=== PATIENT | female | born 1965 | race Caucasian/White ===

== ENCOUNTER 2024-02-07 16:12 | Emergency (ER) | payer MEDICARE ==
--- OUTSIDE RECORDS SUMMARY | 2024-02-07 16:18 | XMS REPORT | Continuity of Care Document ---
Author Name Unknown Address [address] [facility] [address] [place] [address] [facility] Address [address] [facility] [place] [address] Care Team Providers Care Chute Worker Name Role Phone GRABIEL CROCKETT Primary Care Physician Unavaila Grabiel Bhagat Attending Clinician Unavailable ZAIRE ACOSTA Attending Clinician UnavailZAIRE Girard Attending Clinician UnavailZaire Girard MD Attending Clinician [phone] PHILL DASILVA Attending Clinician Unavail able PHILL DASILVA Attending Clinician Unavail able Phill Dasilva MD Attending Clinician Anusha Irene Attending Clinician RADIOLOGY Attending Clinician Unavailable OLIVIER ZAVALETA Attending Clinician Unavailable OLIVIER ZAVALETA Attending Clinician Unavailable Doctor Unassigned, [place] Attending Clinician U navailable Radiology Attending Clinician Unavailable Pob, [facility] Attending Clinician UnavailJose Michaels MD Attending Clinician HI Attending Clinician Unavailable MAKENZIE DUBOIS Attending Clinician Unavailab Kacie PRASAD, Makenzie Lynch Attending Clinician [phone] Merrill Horton Attending Clinician [phone] BLU GRISSOM Attending Clinician UnavailBlu Puentes MD Attending Clinician [phone] Only, Ang Db Test Attending Clinician Unavailelisha Black MD, Rebecca Attending Clinician [phone] REBECCA BLACK Attending Clinician Unavailable Modesto ROSAS, Zaira Regalado Attending Clinician Unavailab patel Pcp, Patient Does Not Have A Attending Clinician NAIN PRICE Attending Clinician Unavailable Nain Fu Attending Clinician [phone] Kristopher KAYE, Martir Attending Clinician PHILL DASILVA Admitting Clinician Unavail able OLIVIER ZAVALETA Admitting Clinician Unavailable HI Admitting Clinician Unavailable SUNDAY GARY Admitting Clinician UnavailBLU [place] Admitting Clinician Unavailab patel Payers Payer Name Policy Type Policy Number Effective Date Expirati on Date Source [facility] MEDICARE ADVANTAGE PLAN [id number] 2023 00:00:00 [employer] (MEDICARE REPLACEMENT/ADVANTAG E - HMO) [id number] 2019 00:00:00 Problems Condition Name Condition Details Condition Category Status Onset Date Resolution Date Last Treatment Date Treating Clinician Comments Source Body mass index 40+ - severely obese Body Mass Index 40+ - Severely Obese Problem Active 2-23 00:00: 00 [facility] Long-term drug therapy Long-term Drug Therapy Problem Active 06-23 00:00: 00 [facility] 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 History of Cerebrovas cular Accident Due to Ischemia Problem Active 2019-05 1 00:00: 00 [facility] Peripheral edema Peripheral Edema Problem Active 820 00:00: 00 [facility] Lumbar radiculopa thy Lumbar Radiculopa thy Problem Active 14 00:00: 00 [facility] Dysuria Dysuria Problem Active 10-05 00:00: 00 [facility] Acquired pes planus Acquired Pes Planus Problem Active 10-05 00:00: 00 [place] [facility] Hyperchole sterolemia Hyperchole sterolemia Problem Active 06-05 00:00: 00 [facility] Chronic pain syndrome Chronic Pain Syndrome Problem Active 06-05 00:00: 00 [place] [facility] Hypertensi ve disorder Hypertensi ve Disorder Problem Active 06-05 00:00: 00 [facility] Osteoarthr itis Osteoarthr itis Problem Active 06-05 00:00: 00 [facility] Low back pain Low Back Pain Problem Active 06-05 00:00: 00 [facility] Neuralgia Neuralgia Problem Active 06-05 00:00: 00 [place] [facility] Anticoagul ant therapy Anticoagul ant Therapy Problem Active 06-05 00:00: 00 [place] [facility] History of hemorrhagi c stroke with residual hemiplegia History of Hemorrhagi c Stroke with Residual Hemiplegia Problem Active 06-05 00:00: 00 [place] [facility] CVA (cerebral vascular accident) CVA (cerebral vascular accident) Disease Active 12-27 00:00: 00 [facility] Hemiplegia affecting left nondominan t side Hemiplegia affecting left nondominan t side Disease Active 12-27 00:00: 00 [facility] Seizures Seizures Disease Active 12-27 00:00: 00 [facility] Transient alteration of awareness Transient alteration of awareness Disease Active 12-25 00:00: 00 [facility] Transient alteration of awareness Transient alteration of awareness Disease Active 12-25 00:00: 00 [facility] Morbid obesity with body mass index of 40.0-49.9 Morbid obesity with body mass index of 40.0-49.9 Disease Active 12-24 00:00: 00 [facility] Morbid obesity with body mass index of 50 or higher Morbid obesity with body mass index of 50 or higher Disease Active 12-24 00:00: 00 [facility] Elective surgery Elective surgery Disease Active 12-24 00:00: 00 [facility] PFO (patent foramen ovale) PFO (patent foramen ovale) Disease Active 10-31 00:00: 00 Overview: Formattin g of this note might be different from the original. Added automatic ally from request for surgery [id number] [facility] Dental caries Dental caries Disease Active 10-31 00:00: 00 Overview: Formattin g of this note might be different from the original. Added automatic ally from request for surgery [id number] [facility] Allergies, Adverse Reactions, Alerts Allergy Name Allergy Type Status Severity Reaction(s) Onset Date Inactive Date Treating Clinician Comments Source NAPROXEN DRUG INGREDI Active Rash 10-19 00:00: 00 [facility] TETRACYC LINE DRUG INGREDI Active Anaphylaxis 10-19 00:00: 00 [facility] Naproxen Propensi ty to adverse reaction s Active Rash 10-19 00:00: 00 [facility] Tetracyc line Propensi ty to adverse reaction s Active Anaphylaxis 10-19 00:00: 00 [facility] Tetracyc line Drug Allergy Active [facility] Naproxen Allergy to substanc e Active [facility] Tetracyc line Allergy to substanc e Active [facility] Social History Social Habit Start Date Stop Date Quantity Comments Source ASSERTION [facility] of Social function 2023-09-28 00:00:00 2023-09-28 00:00:00 [facility] Exposure to SARS-CoV-2 (event) 2022-10-08 00:00:00 2022-10-18 14:18:00 Not sure [facility] Tobacco use and exposure 2017-04-23 00:00:00 2017-04-23 00:00:00 Smokeless tobacco non-user [facility] Sex assigned at 1965 00:00:00 1965 00:00:00 [facility] Smoking Status Start Date Stop Date Source Never smoked tobacco [facility] Medications Ordered Medication Name Filled Medication Name Start Date Stop Date Current Medication? Ordering Clinician Indication Dosage Frequency Signature (SIG) Comments Components Source traMADoL (ULTRAM) tablet 50 mg 01-30 01:30: 00 01-30 00:41 :00 No 50mg 50 mg, Oral, ONCE, 1 dose, On Adela 01/30/24 at 2030, [facility] ondansetron (ZOFRAN-ODT ) disintegrat ing tablet 4 mg 01-30 01:15: 00 01-30 00:41 :00 No 4mg 4 mg, Oral, ONCE, 1 dose, On Adela 01/30/24 at 2015, [facility] acetaminoph en (TYLENOL) tablet 650 mg 01-29 23:15: 00 01-30 00:41 :00 No 650mg 650 mg, Oral, ONCE, 1 dose, On Adela 01/30/24 at 1815, [facility] traMADoL 50 mg tablet 01-29 00:00: 00 Yes [id number] 50mg Take 1 tablet by mouth every 6 (six) hours as needed for Pain (scale 4-6). Indication s: acute pain [facility] ondansetron 4 mg disintegrat ing tablet 01-29 00:00: 00 Yes [id number] 4mg Take 1 tablet by mouth every 4 (four) hours as needed for Nausea and Vomiting (N/V). [facility] meloxicam (MOBIC) tablet 15 mg 09-28 14:00: 00 Yes 15mg 15 mg, Oral, DAILY, First dose on Sat09/29/23 at 0900, Until Discontinu ed, [facility] acetaminoph en (TYLENOL) tablet 975 mg 09-28 02:15: 00 09-28 01:31 :00 No 975mg 975 mg, Oral, ONCE NOW, 1 dose, On 09/28/23 at 2115, [facility] meloxicam 15 mg tablet 09-27 00:00: 00 Yes [id number] 15mg Take 1 tablet by mouth in the morning. [facility] acetaminoph en (TYLENOL ARTHRITIS PAIN) 650 mg CR tablet 09-27 00:00: 00 Yes [id number] 650mg Take 1 tablet by mouth every 8 (eight) hours as needed for Pain. [facility] predniSONE 20 mg tablet 09-27 00:00: 00 Yes [id number] Take 2 tablets PO daily [facility] warfarin 2.5 mg tablet 02-11 00:00: 00 Yes 1.25mg Take 0.5 tablets by mouth every Sat, Sat, Sat and Sat in the evening. [facility] warfarin 2.5 mg tablet 02-10 00:00: 00 Yes 2.5mg Take 1 tablet by mouth every Saturday, and Saturday in the evening. [facility] calcium carbonate-v itamin D3 250-125 mg-unit per tablet 02-06 00:00: 00 Yes 250mg Take 1 tablet by mouth 3 (three) times daily. [facility] chlorhexidi ne 0.12 % mouthwash 02-06 00:00: 00 Yes 15mL Swish and spit out 15 mL 2 (two) times daily. [facility] phenylephri ne 0.25 % suppository 02-06 00:00: 00 Yes 1{suppo sitory} Insert 1 Suppositor y into rectum 2 (two) times daily. [facility] docusate 100 mg capsule 02-06 00:00: 00 Yes 100mg Take 1 capsule by mouth daily. [facility] aspirin 81 mg chewable tablet 02-06 00:00: 00 Yes 81mg Take 1 tablet by mouth daily. [facility] clopidogrel 75 mg tablet 02-06 00:00: 00 Yes 75mg Take 1 tablet by mouth daily.X 6 MOS.HG [facility] omeprazole 20 mg capsule 02-06 00:00: 00 Yes 20mg Take 1 capsule by mouth daily. [facility] nortriptyli ne 50 mg capsule 02-06 00:00: 00 Yes 50mg Take 1 capsule by mouth at bedtime. [facility] chlorhexidi ne 0.12 % mouthwash 02-06 00:00: 00 Yes 15mL Swish and spit out 15 mL 2 (two) times daily. [facility] atorvastati n calcium 40 mg tablet atorvastati n calcium 40 mg tablet Yes [facility] amlodipine besylate 5 mg tablet amlodipine besylate 5 mg tablet Yes [facility] carvedilol 3.125 mg tablet carvedilol 3.125 mg tablet Yes [facility] gabapentin 300 mg capsule gabapentin 300 mg capsule Yes [facility] cyclobenzap rine hcl 10 mg tablet cyclobenzap rine hcl 10 mg tablet Yes [facility] hydrochloro thiazide 12.5 mg tablet hydrochloro thiazide 12.5 mg tablet Yes [facility] amlodipine 5 mg tablet TAKE 1 TABLET BY MOUTH EVERY DAY amlodipine 5 mg tablet TAKE 1 TABLET BY MOUTH EVERY DAY No amlodipine 5 mg tablet TAKE 1 TABLET BY MOUTH EVERY DAY [facility] aspirin 81 mg chewable tablet Chew 1 tablet every day by oral route. aspirin 81 mg chewable tablet Chew 1 tablet every day by oral route. No 1 Q1D aspirin 81 mg chewable tablet Chew 1 tablet every day by oral route. [facility] atorvastati n 40 mg tablet TAKE 1 TABLET BY MOUTH EVERY DAY atorvastati n 40 mg tablet TAKE 1 TABLET BY MOUTH EVERY DAY No atorvastat in 40 mg tablet TAKE 1 TABLET BY MOUTH EVERY DAY [facility] carvedilol 3.125 mg tablet TAKE 1 TABLET BY MOUTH TWICE DAILY carvedilol 3.125 mg tablet TAKE 1 TABLET BY MOUTH TWICE DAILY No carvedilol 3.125 mg tablet TAKE 1 TABLET BY MOUTH TWICE DAILY [facility] cyclobenzap rine 5 mg tablet TAKE 1 TABLET BY MOUTH THREE TIMES DAILY cyclobenzap rine 5 mg tablet TAKE 1 TABLET BY MOUTH THREE TIMES DAILY No cyclobenza sadi 5 mg tablet TAKE 1 TABLET BY MOUTH THREE TIMES DAILY [facility] ergocalcife rol (vitamin D2) 1,250 mcg (50,000 unit) capsule 1 PO weekly ergocalcife rol (vitamin D2) 1,250 mcg (50,000 unit) capsule 1 PO weekly No ergocalcif harshal (vitamin D2) 1,250 mcg (50,000 unit) capsule 1 PO weekly [facility] Fluzone Quad (PF) 60 mcg (15 mcg x 4)/0.5 mL IM syringe Fluzone Quad (PF) 60 mcg (15 mcg x 4)/0.5 mL IM syringe No Fluzone Quad (PF) 60 mcg (15 mcg x 4)/0.5 mL IM syringe [facility] gabapentin 100 mg capsule TK 2 CAPSULES PO BID gabapentin 100 mg capsule TK 2 CAPSULES PO BID No gabapentin 100 mg capsule TK 2 CAPSULES PO BID [facility] hydrochloro thiazide 12.5 mg tablet TAKE 1 TABLET BY MOUTH EVERY DAY hydrochloro thiazide 12.5 mg tablet TAKE 1 TABLET BY MOUTH EVERY DAY No hydrochlor othiazide 12.5 mg tablet TAKE 1 TABLET BY MOUTH EVERY DAY [facility] Prilosec OTC 20 mg twice daily Prilosec OTC 20 mg twice daily No Prilosec OTC 20 mg twice daily [facility] Shingrix (PF) 50 mcg/0.5 mL intramuscul ar suspension, kit Shingrix (PF) 50 mcg/0.5 mL intramuscul ar suspension, kit No Shingrix (PF) 50 mcg/0.5 mL intramuscu lar suspension , kit [facility] tizanidine 4 mg tablet TAKE 1 TABLET BY MOUTH TWICE DAILY tizanidine 4 mg tablet TAKE 1 TABLET BY MOUTH TWICE DAILY No tizanidine 4 mg tablet TAKE 1 TABLET BY MOUTH TWICE DAILY [facility] warfarin 3 mg tablet TAKE 1 TABLET BY MOUTH DAILY warfarin 3 mg tablet TAKE 1 TABLET BY MOUTH DAILY No warfarin 3 mg tablet TAKE 1 TABLET BY MOUTH DAILY [facility] warfarin 4 mg tablet TAKE 1 TABLET BY MOUTH EVERY DAY warfarin 4 mg tablet TAKE 1 TABLET BY MOUTH EVERY DAY No warfarin 4 mg tablet TAKE 1 TABLET BY MOUTH EVERY DAY [facility] sulfamethox azole 800 mg-trimetho prim 160 mg tablet Take 1 tablet every 12 hours by oral route for 7 days. sulfamethox azole 800 mg-trimetho prim 160 mg tablet Take 1 tablet every 12 hours by oral route for 7 days. No 1 Q12H sulfametho xazole 800 mg-trimeth oprim 160 mg tablet Take 1 tablet every 12 hours by oral route for 7 days. [facility] amlodipine 5 mg tablet TAKE 1 TABLET BY MOUTH EVERY DAY amlodipine 5 mg tablet TAKE 1 TABLET BY MOUTH EVERY DAY No amlodipine 5 mg tablet TAKE 1 TABLET BY MOUTH EVERY DAY [facility] aspirin 81 mg chewable tablet Chew 1 tablet every day by oral route. aspirin 81 mg chewable tablet Chew 1 tablet every day by oral route. No 1 Q1D aspirin 81 mg chewable tablet Chew 1 tablet every day by oral route. [facility] atorvastati n 40 mg tablet TAKE 1 TABLET BY MOUTH EVERY DAY atorvastati n 40 mg tablet TAKE 1 TABLET BY MOUTH EVERY DAY No atorvastat in 40 mg tablet TAKE 1 TABLET BY MOUTH EVERY DAY [facility] carvedilol 3.125 mg tablet TAKE 1 TABLET BY MOUTH TWICE DAILY carvedilol 3.125 mg tablet TAKE 1 TABLET BY MOUTH TWICE DAILY No carvedilol 3.125 mg tablet TAKE 1 TABLET BY MOUTH TWICE DAILY [facility] cyclobenzap rine 5 mg tablet TAKE 1 TABLET BY MOUTH THREE TIMES DAILY cyclobenzap rine 5 mg tablet TAKE 1 TABLET BY MOUTH THREE TIMES DAILY No cyclobenza sadi 5 mg tablet TAKE 1 TABLET BY MOUTH THREE TIMES DAILY [facility] ergocalcife rol (vitamin D2) 1,250 mcg (50,000 unit) capsule 1 PO weekly ergocalcife rol (vitamin D2) 1,250 mcg (50,000 unit) capsule 1 PO weekly No ergocalcif harshal (vitamin D2) 1,250 mcg (50,000 unit) capsule 1 PO weekly [facility] fluconazole 150 mg tablet TAKE 1 TABLET BY MOUTH 1 WEEK AFTER COMPLETION OF ANTIBIOTIC TREATMENT fluconazole 150 mg tablet TAKE 1 TABLET BY MOUTH 1 WEEK AFTER COMPLETION OF ANTIBIOTIC TREATMENT No fluconazol e 150 mg tablet TAKE 1 TABLET BY MOUTH 1 WEEK AFTER COMPLETION OF ANTIBIOTIC TREATMENT [facility] Fluzone Quad (PF) 60 mcg (15 mcg x 4)/0.5 mL IM syringe Fluzone Quad (PF) 60 mcg (15 mcg x 4)/0.5 mL IM syringe No Fluzone Quad (PF) 60 mcg (15 mcg x 4)/0.5 mL IM syringe [facility] gabapentin 100 mg capsule TK 2 CAPSULES PO BID gabapentin 100 mg capsule TK 2 CAPSULES PO BID No gabapentin 100 mg capsule TK 2 CAPSULES PO BID [facility] hydrochloro thiazide 12.5 mg tablet TAKE 1 TABLET BY MOUTH EVERY DAY hydrochloro thiazide 12.5 mg tablet TAKE 1 TABLET BY MOUTH EVERY DAY No hydrochlor othiazide 12.5 mg tablet TAKE 1 TABLET BY MOUTH EVERY DAY [facility] Prilosec OTC 20 mg twice daily Prilosec OTC 20 mg twice daily No Prilosec OTC 20 mg twice daily [facility] Shingrix (PF) 50 mcg/0.5 mL intramuscul ar suspension, kit Shingrix (PF) 50 mcg/0.5 mL intramuscul ar suspension, kit No Shingrix (PF) 50 mcg/0.5 mL intramuscu lar suspension , kit [facility] sulfamethox azole 800 mg-trimetho prim 160 mg tablet TAKE 1 TABLET BY MOUTH EVERY 12 HOURS FOR 7 DAYS sulfamethox azole 800 mg-trimetho prim 160 mg tablet TAKE 1 TABLET BY MOUTH EVERY 12 HOURS FOR 7 DAYS No sulfametho xazole 800 mg-trimeth oprim 160 mg tablet TAKE 1 TABLET BY MOUTH EVERY 12 HOURS FOR 7 DAYS [facility] tizanidine 4 mg tablet TAKE 1 TABLET BY MOUTH TWICE DAILY tizanidine 4 mg tablet TAKE 1 TABLET BY MOUTH TWICE DAILY No tizanidine 4 mg tablet TAKE 1 TABLET BY MOUTH TWICE DAILY [facility] warfarin 3 mg tablet TAKE 1 TABLET BY MOUTH DAILY warfarin 3 mg tablet TAKE 1 TABLET BY MOUTH DAILY No warfarin 3 mg tablet TAKE 1 TABLET BY MOUTH DAILY [facility] warfarin 4 mg tablet TAKE 1 TABLET BY MOUTH EVERY DAY warfarin 4 mg tablet TAKE 1 TABLET BY MOUTH EVERY DAY No warfarin 4 mg tablet TAKE 1 TABLET BY MOUTH EVERY DAY [facility] amlodipine 5 mg tablet TAKE 1 TABLET BY MOUTH EVERY DAY amlodipine 5 mg tablet TAKE 1 TABLET BY MOUTH EVERY DAY No amlodipine 5 mg tablet TAKE 1 TABLET BY MOUTH EVERY DAY [facility] aspirin 81 mg chewable tablet Chew 1 tablet every day by oral route. aspirin 81 mg chewable tablet Chew 1 tablet every day by oral route. No 1 Q1D aspirin 81 mg chewable tablet Chew 1 tablet every day by oral route. [facility] atorvastati n 40 mg tablet TAKE 1 TABLET BY MOUTH EVERY DAY atorvastati n 40 mg tablet TAKE 1 TABLET BY MOUTH EVERY DAY No atorvastat in 40 mg tablet TAKE 1 TABLET BY MOUTH EVERY DAY [facility] carvedilol 3.125 mg tablet TAKE 1 TABLET BY MOUTH TWICE DAILY carvedilol 3.125 mg tablet TAKE 1 TABLET BY MOUTH TWICE DAILY No carvedilol 3.125 mg tablet TAKE 1 TABLET BY MOUTH TWICE DAILY [facility] cyclobenzap rine 5 mg tablet TAKE 1 TABLET BY MOUTH THREE TIMES DAILY cyclobenzap rine 5 mg tablet TAKE 1 TABLET BY MOUTH THREE TIMES DAILY No cyclobenza sadi 5 mg tablet TAKE 1 TABLET BY MOUTH THREE TIMES DAILY [facility] ergocalcife rol (vitamin D2) 1,250 mcg (50,000 unit) capsule 1 PO weekly ergocalcife rol (vitamin D2) 1,250 mcg (50,000 unit) capsule 1 PO weekly No ergocalcif harshal (vitamin D2) 1,250 mcg (50,000 unit) capsule 1 PO weekly [facility] fluconazole 150 mg tablet TAKE 1 TABLET BY MOUTH 1 WEEK AFTER COMPLETION OF ANTIBIOTIC TREATMENT fluconazole 150 mg tablet TAKE 1 TABLET BY MOUTH 1 WEEK AFTER COMPLETION OF ANTIBIOTIC TREATMENT No fluconazol e 150 mg tablet TAKE 1 TABLET BY MOUTH 1 WEEK AFTER COMPLETION OF ANTIBIOTIC TREATMENT [facility] Fluzone Quad (PF) 60 mcg (15 mcg x 4)/0.5 mL IM syringe Fluzone Quad (PF) 60 mcg (15 mcg x 4)/0.5 mL IM syringe No Fluzone Quad (PF) 60 mcg (15 mcg x 4)/0.5 mL IM syringe [facility] gabapentin 100 mg capsule TK 2 CAPSULES PO BID gabapentin 100 mg capsule TK 2 CAPSULES PO BID No gabapentin 100 mg capsule TK 2 CAPSULES PO BID [facility] hydrochloro thiazide 12.5 mg tablet TAKE 1 TABLET BY MOUTH EVERY DAY hydrochloro thiazide 12.5 mg tablet TAKE 1 TABLET BY MOUTH EVERY DAY No hydrochlor othiazide 12.5 mg tablet TAKE 1 TABLET BY MOUTH EVERY DAY [facility] Prilosec OTC 20 mg twice daily Prilosec OTC 20 mg twice daily No Prilosec OTC 20 mg twice daily [facility] Shingrix (PF) 50 mcg/0.5 mL intramuscul ar suspension, kit Shingrix (PF) 50 mcg/0.5 mL intramuscul ar suspension, kit No Shingrix (PF) 50 mcg/0.5 mL intramuscu lar suspension , kit [facility] sulfamethox azole 800 mg-trimetho prim 160 mg tablet TAKE 1 TABLET BY MOUTH EVERY 12 HOURS FOR 7 DAYS sulfamethox azole 800 mg-trimetho prim 160 mg tablet TAKE 1 TABLET BY MOUTH EVERY 12 HOURS FOR 7 DAYS No sulfametho xazole 800 mg-trimeth oprim 160 mg tablet TAKE 1 TABLET BY MOUTH EVERY 12 HOURS FOR 7 DAYS [facility] tizanidine 4 mg tablet TAKE 1 TABLET BY MOUTH TWICE DAILY tizanidine 4 mg tablet TAKE 1 TABLET BY MOUTH TWICE DAILY No tizanidine 4 mg tablet TAKE 1 TABLET BY MOUTH TWICE DAILY [facility] tramadol 50 mg tablet TAKE 1 TABLET BY MOUTH THREE TIMES DAILY tramadol 50 mg tablet TAKE 1 TABLET BY MOUTH THREE TIMES DAILY No tramadol 50 mg tablet TAKE 1 TABLET BY MOUTH THREE TIMES DAILY [facility] warfarin 3 mg tablet TAKE 1 TABLET BY MOUTH DAILY warfarin 3 mg tablet TAKE 1 TABLET BY MOUTH DAILY No warfarin 3 mg tablet TAKE 1 TABLET BY MOUTH DAILY [facility] warfarin 4 mg tablet TAKE 1 TABLET BY MOUTH EVERY DAY warfarin 4 mg tablet TAKE 1 TABLET BY MOUTH EVERY DAY No warfarin 4 mg tablet TAKE 1 TABLET BY MOUTH EVERY DAY [facility] prednisone 10 mg tablet prednisone 10 mg tablet No prednisone 10 mg tablet [facility] amlodipine 5 mg tablet TAKE 1 TABLET BY MOUTH EVERY DAY amlodipine 5 mg tablet TAKE 1 TABLET BY MOUTH EVERY DAY No amlodipine 5 mg tablet TAKE 1 TABLET BY MOUTH EVERY DAY [facility] aspirin 81 mg chewable tablet Chew 1 tablet every day by oral route. aspirin 81 mg chewable tablet Chew 1 tablet every day by oral route. No 1 Q1D aspirin 81 mg chewable tablet Chew 1 tablet every day by oral route. [facility] atorvastati n 40 mg tablet TAKE 1 TABLET BY MOUTH EVERY DAY atorvastati n 40 mg tablet TAKE 1 TABLET BY MOUTH EVERY DAY No atorvastat in 40 mg tablet TAKE 1 TABLET BY MOUTH EVERY DAY [facility] carvedilol 3.125 mg tablet TAKE 1 TABLET BY MOUTH TWICE DAILY carvedilol 3.125 mg tablet TAKE 1 TABLET BY MOUTH TWICE DAILY No carvedilol 3.125 mg tablet TAKE 1 TABLET BY MOUTH TWICE DAILY [facility] cyclobenzap rine 5 mg tablet TAKE 1 TABLET BY MOUTH THREE TIMES DAILY cyclobenzap rine 5 mg tablet TAKE 1 TABLET BY MOUTH THREE TIMES DAILY No cyclobenza sadi 5 mg tablet TAKE 1 TABLET BY MOUTH THREE TIMES DAILY [facility] ergocalcife rol (vitamin D2) 1,250 mcg (50,000 unit) capsule 1 PO weekly ergocalcife rol (vitamin D2) 1,250 mcg (50,000 unit) capsule 1 PO weekly No ergocalcif harshal (vitamin D2) 1,250 mcg (50,000 unit) capsule 1 PO weekly [facility] gabapentin 100 mg capsule TAKE 2 CAPSULES BY MOUTH TWICE DAILY gabapentin 100 mg capsule TAKE 2 CAPSULES BY MOUTH TWICE DAILY No gabapentin 100 mg capsule TAKE 2 CAPSULES BY MOUTH TWICE DAILY [facility] hydrochloro thiazide 12.5 mg tablet TAKE 1 TABLET BY MOUTH EVERY DAY hydrochloro thiazide 12.5 mg tablet TAKE 1 TABLET BY MOUTH EVERY DAY No hydrochlor othiazide 12.5 mg tablet TAKE 1 TABLET BY MOUTH EVERY DAY [facility] Prilosec OTC 20 mg twice daily Prilosec OTC 20 mg twice daily No Prilosec OTC 20 mg twice daily [facility] tizanidine 4 mg tablet TAKE 1 TABLET BY MOUTH TWICE DAILY tizanidine 4 mg tablet TAKE 1 TABLET BY MOUTH TWICE DAILY No tizanidine 4 mg tablet TAKE 1 TABLET BY MOUTH TWICE DAILY [facility] tramadol 50 mg tablet TAKE 1 TABLET BY MOUTH THREE TIMES DAILY tramadol 50 mg tablet TAKE 1 TABLET BY MOUTH THREE TIMES DAILY No tramadol 50 mg tablet TAKE 1 TABLET BY MOUTH THREE TIMES DAILY [facility] [facility] war[facility]in 3 mg tablet TAKE 1 TABLET BY MOUTH DAILY warfarin 3 mg tablet TAKE 1 TABLET BY MOUTH DAILY No warfarin 3 mg tablet TAKE 1 TABLET BY MOUTH DAILY [facility] warfarin 4 mg tablet TAKE 1 TABLET BY MOUTH EVERY DAY warfarin 4 mg tablet TAKE 1 TABLET BY MOUTH EVERY DAY No warfarin 4 mg tablet TAKE 1 TABLET BY MOUTH EVERY DAY [facility] Diflucan 150 mg tablet Take 1 tablet in 6 days. Take 1 tablet one week after Diflucan 150 mg tablet Take 1 tablet in 6 days. Take 1 tablet one week after No Diflucan 150 mg tablet Take 1 tablet in 6 days. Take 1 tablet one week after [facility] Zithromax Z-Edson 250 mg tablet TAKE 2 TABLETS (500 MG) BY ORAL ROUTE ONCE DAILY FOR 1 DAY THEN 1 TABLET (250 MG) BY ORAL ROUTE ONCE DAILY FOR 4 DAYS Zithromax Z-Edson 250 mg tablet TAKE 2 TABLETS (500 MG) BY ORAL ROUTE ONCE DAILY FOR 1 DAY THEN 1 TABLET (250 MG) BY ORAL ROUTE ONCE DAILY FOR 4 DAYS No Zithromax Z-Edson 250 mg tablet TAKE 2 TABLETS (500 MG) BY ORAL ROUTE ONCE DAILY FOR 1 DAY THEN 1 TABLET (250 MG) BY ORAL ROUTE ONCE DAILY FOR 4 DAYS [facility] magnesium 1 po qd magnesium 1 po qd No magnesium 1 po qd [facility] amlodipine 5 mg tablet TAKE 1 TABLET BY MOUTH EVERY DAY amlodipine 5 mg tablet TAKE 1 TABLET BY MOUTH EVERY DAY No amlodipine 5 mg tablet TAKE 1 TABLET BY MOUTH EVERY DAY [facility] atorvastati n 40 mg tablet TAKE 1 TABLET BY MOUTH EVERY DAY atorvastati n 40 mg tablet TAKE 1 TABLET BY MOUTH EVERY DAY No atorvastat in 40 mg tablet TAKE 1 TABLET BY MOUTH EVERY DAY [facility] carvedilol 3.125 mg tablet TAKE 1 TABLET BY MOUTH TWICE DAILY carvedilol 3.125 mg tablet TAKE 1 TABLET BY MOUTH TWICE DAILY No carvedilol 3.125 mg tablet TAKE 1 TABLET BY MOUTH TWICE DAILY [facility] cephalexin 500 mg capsule TAKE 1 CAPSULE BY MOUTH FOUR TIMES DAILY FOR 7 DAYS cephalexin 500 mg capsule TAKE 1 CAPSULE BY MOUTH FOUR TIMES DAILY FOR 7 DAYS No cephalexin 500 mg capsule TAKE 1 CAPSULE BY MOUTH FOUR TIMES DAILY FOR 7 DAYS [facility] cyclobenzap rine 5 mg tablet TAKE 1 TABLET BY MOUTH THREE TIMES DAILY cyclobenzap rine 5 mg tablet TAKE 1 TABLET BY MOUTH THREE TIMES DAILY No cyclobenza sadi 5 mg tablet TAKE 1 TABLET BY MOUTH THREE TIMES DAILY [facility] ergocalcife rol (vitamin D2) 1,250 mcg (50,000 unit) capsule 1 PO weekly ergocalcife rol (vitamin D2) 1,250 mcg (50,000 unit) capsule 1 PO weekly No ergocalcif harshal (vitamin D2) 1,250 mcg (50,000 unit) capsule 1 PO weekly [facility] fluconazole 150 mg tablet TAKE 1 TABLET BY MOUTH AT THE END OF THE ANTIBIOTIC COURSE AND TAKE 1 TABLET BY MOUTH 1 WEEK AFTER THAT fluconazole 150 mg tablet TAKE 1 TABLET BY MOUTH AT THE END OF THE ANTIBIOTIC COURSE AND TAKE 1 TABLET BY MOUTH 1 WEEK AFTER THAT No fluconazol e 150 mg tablet TAKE 1 TABLET BY MOUTH AT THE END OF THE ANTIBIOTIC COURSE AND TAKE 1 TABLET BY MOUTH 1 WEEK AFTER THAT [facility] gabapentin 100 mg capsule TAKE 2 CAPSULES BY MOUTH TWICE DAILY gabapentin 100 mg capsule TAKE 2 CAPSULES BY MOUTH TWICE DAILY No gabapentin 100 mg capsule TAKE 2 CAPSULES BY MOUTH TWICE DAILY [facility] hydrochloro thiazide 12.5 mg tablet TAKE 1 TABLET BY MOUTH EVERY DAY hydrochloro thiazide 12.5 mg tablet TAKE 1 TABLET BY MOUTH EVERY DAY No hydrochlor othiazide 12.5 mg tablet TAKE 1 TABLET BY MOUTH EVERY DAY [facility] magnesium 1 po qd magnesium 1 po qd No magnesium 1 po qd [facility] Prilosec OTC 20 mg twice daily Prilosec OTC 20 mg twice daily No Prilosec OTC 20 mg twice daily [facility] tizanidine 4 mg tablet TAKE 1 TABLET BY MOUTH TWICE DAILY tizanidine 4 mg tablet TAKE 1 TABLET BY MOUTH TWICE DAILY No tizanidine 4 mg tablet TAKE 1 TABLET BY MOUTH TWICE DAILY [facility] tramadol 50 mg tablet TAKE 1 TABLET BY MOUTH THREE TIMES DAILY tramadol 50 mg tablet TAKE 1 TABLET BY MOUTH THREE TIMES DAILY No tramadol 50 mg tablet TAKE 1 TABLET BY MOUTH THREE TIMES DAILY [facility] valacyclovi r 1 gram tablet TAKE 1 TABLET BY MOUTH EVERY 8 HOURS FOR 7 DAYS valacyclovi r 1 gram tablet TAKE 1 TABLET BY MOUTH EVERY 8 HOURS FOR 7 DAYS No valacyclov ir 1 gram tablet TAKE 1 TABLET BY MOUTH EVERY 8 HOURS FOR 7 DAYS [facility] Xarelto 10 mg tablet TAKE 1 TABLET BY MOUTH EVERY DAY Xarelto 10 mg tablet TAKE 1 TABLET BY MOUTH EVERY DAY No Xarelto 10 mg tablet TAKE 1 TABLET BY MOUTH EVERY DAY [facility] tramadol hcl 50 mg tablet tramadol hcl 50 mg tablet Yes [facility] Vital Signs Vital Name Observation Time Observation Value Comments S laura Systolic blood pressure 2024-01-31 00:41:00 154 mm[Hg] [facility] acute hospital Diastolic blood pressure 2024-01-31 00:41:00 95 mm[Hg] General acute hospital Heart rate 2024-01-31 00:41:00 77 /min [facility] Oxygen saturation in Arterial blood by Pulse oximetry 2024-01-31 00:41:00 100 /min General acute hospital Body temperature 2024-01-30 22:26:00 36.78 [facility] Respiratory rate 2024-01-30 22:26:00 20 /min [facility] Body height 2024-01-30 22:26:00 165.1 cm [facility] Body weight 2024-01-30 22:26:00 131.543 kg [facility] BMI 2024-01-30 22:26:00 48.26 kg/m2 [facility] Systolic blood pressure 2023-09-29 02:46:00 142 mm[Hg] [facility] acute hospital Diastolic blood pressure 2023-09-29 02:46:00 84 mm[Hg] General acute hospital Heart rate 2023-09-29 02:46:00 64 /min [facility] Body temperature 2023-09-29 02:46:00 36.72 [facility] Respiratory rate 2023-09-29 02:46:00 16 /min [facility] Oxygen saturation in Arterial blood by Pulse oximetry 2023-09-29 02:46:00 100 /min [facility] acute hospital Body height 2023-09-29 00:48:00 165.1 cm [facility] Body weight 2023-09-29 00:48:00 128.822 kg [facility] BMI 2023-09-29 00:48:00 47.26 kg/m2 [facility] BP Diastolic 2022-05-10 00:00:00 76 mm[Hg] [facility] Height 2022-05-10 00:00:00 65 [in_i] [facility] BMI (Body Mass Index) 2022-05-10 00:00:00 50.3 kg/m2 [facility] BP Systolic 2022-05-10 00:00:00 132 mm[Hg] [facility] Body Weight 2022-05-10 00:00:00 4832 [oz_av] [facility] Systolic blood pressure 2022-04-01 21:01:19 146 mm[Hg] General acute hospital Diastolic blood pressure 2022-04-01 21:01:19 83 mm[Hg] General acute hospital Heart rate 2022-04-01 21:01:19 77 /min [facility] Body temperature 2022-04-01 21:01:19 36.89 [facility] Respiratory rate 2022-04-01 21:01:19 16 /min [facility] Body height 2022-04-01 20:21:00 165.1 cm [facility] Body weight 2022-04-01 20:21:00 131.543 kg [facility] BMI 2022-04-01 20:21:00 48.26 kg/m2 [facility] Oxygen saturation in Arterial blood by Pulse oximetry 2022-04-01 20:21:00 97 /min [facility] acute hospital BP Diastolic 2022-02-02 00:00:00 80 mm[Hg] [facility] Height 2022-02-02 00:00:00 65 [in_i] [facility] BMI (Body Mass Index) 2022-02-02 00:00:00 48.3 kg/m2 [facility] BP Systolic 2022-02-02 00:00:00 138 mm[Hg] [facility] [place] [place] Body Weight 2022-02-02 00:00:00 4640 [oz_av] [facility] BP Diastolic 2021-09-15 00:00:00 90 mm[Hg] [facility] Height 2021-09-15 00:00:00 65 [in_i] [facility] BMI (Body Mass Index) 2021-09-15 00:00:00 49.4 kg/m2 [facility] BP Systolic 2021-09-15 00:00:00 148 mm[Hg] [facility] Body Weight 2021-09-15 00:00:00 4752 [oz_av] [facility] BP Diastolic 2021-08-03 00:00:00 82 mm[Hg] [facility] Height 2021-08-03 00:00:00 65 [in_i] [facility] BMI (Body Mass Index) 2021-08-03 00:00:00 48.9 kg/m2 [facility] BP Systolic 2021-08-03 00:00:00 122 mm[Hg] [facility] Body Weight 2021-08-03 00:00:00 4704 [oz_av] [facility] BP Diastolic 2021-07-04 00:00:00 82 mm[Hg] [facility] Height 2021-07-04 00:00:00 65 [in_i] [facility] BMI (Body Mass Index) 2021-07-04 00:00:00 49.3 kg/m2 [facility] BP Systolic 2021-07-04 00:00:00 118 mm[Hg] [facility] Body Weight 2021-07-04 00:00:00 4736 [oz_av] [facility] BP Diastolic 2021-01-23 00:00:00 78 mm[Hg] [facility] Height 2021-01-23 00:00:00 65 [in_i] [facility] BMI (Body Mass Index) 2021-01-23 00:00:00 50.9 kg/m2 [facility] BP Systolic 2021-01-23 00:00:00 114 mm[Hg] [facility] Body Weight 2021-01-23 00:00:00 4896 [oz_av] [facility] BP Diastolic 2020-09-30 00:00:00 84 mm[Hg] [facility] Height 2020-09-30 00:00:00 65 [in_i] [facility] BMI (Body Mass Index) 2020-09-30 00:00:00 50.9 kg/m2 [facility] BP Systolic 2020-09-30 00:00:00 128 mm[Hg] [facility] Body Weight 2020-09-30 00:00:00 4896 [oz_av] [facility] BP Diastolic 2020-09-09 00:00:00 82 mm[Hg] [facility] Height 2020-09-09 00:00:00 65 [in_i] [facility] BMI (Body Mass Index) 2020-09-09 00:00:00 50.3 kg/m2 [facility] BP Systolic 2020-09-09 00:00:00 124 mm[Hg] [facility] [place] [place] Body Weight 2020-09-09 00:00:00 4832 [oz_av] [facility] BP Diastolic 2020-09-06 00:00:00 82 mm[Hg] [facility] Height 2020-09-06 00:00:00 65 [in_i] [facility] BP Systolic 2020-09-06 00:00:00 118 mm[Hg] [facility] BP Diastolic 2020-08-16 00:00:00 82 mm[Hg] [facility] Height 2020-08-16 00:00:00 65 [in_i] [facility] BMI (Body Mass Index) 2020-08-16 00:00:00 50.3 kg/m2 [facility] BP Systolic 2020-08-16 00:00:00 134 mm[Hg] [facility] [place] [place] Body Weight 2020-08-16 00:00:00 4832 [oz_av] [facility] BP Diastolic 2020-07-19 00:00:00 84 mm[Hg] [facility] Height 2020-07-19 00:00:00 65 [in_i] [facility] BMI (Body Mass Index) 2020-07-19 00:00:00 50.1 kg/m2 [facility] BP Systolic 2020-07-19 00:00:00 124 mm[Hg] [facility] [place] [place] Body Weight 2020-07-19 00:00:00 4816 [oz_av] [facility] Procedures Procedure Date / Time Performed Performing Clinician Source [place] APPLICATION SHORT ARM SPLINT FOREARM-HAND STATIC 2024-01-31 00:30:59 Ifeanyi Corley [facility] AUTHORIZATION FOR RELEASE OF PHI 2022-10-23 05:01:00 Doctor Unassigned, Opolis [facility] CALCIUM 2022-10-18 20:39:00 Polina Ruiz [facility] LACTATE DEHYDROGENASE 2022-10-18 20:39:00 Polina Ruiz [facility] MAGNESIUM 2022-10-18 20:39:00 Joseph Polina [facility] HEPATIC FUNCTION PANEL (34228) (ALB,T.PRO,BILI T,BU/BC,ALT,AST,ALK PHOS) 2022-10-18 20:39:00 Polina Ruiz [facility] ALPHA FETOPROTEIN 2022-10-18 20:39:00 Brea Ruiz [facility] ASSIGNMENT OF BENEFITS 2022-10-18 19:17:31 Docjohn r Unassigned, Opolis [facility] XR KNEE 3 VW LEFT 2022-08-30 22:17:04 Cici Gary [facility] CONSENT/REFUSAL FOR DIAGNOSIS AND TREATMENT 2022-04-01 20:12:13 Doctor Unassigned, Opolis [facility] MAMMO, screening, digital, bilateral 2021-08-03 00:00:00 [facility] MAMMO, screening, digital, bilateral 2020-07-19 00:00:00 [facility] bone density 2020-07-19 00:00:00 [facility] XR LUMBAR SPINE 2 VW 2018-12-24 19:03:26 Martir Armenta [facility] NOTICE OF PRIVACY PRACTICES 2018-12-24 18:40:27 Doctor Unassigned, Opolis [facility] CONSENT/REFUSAL FOR DIAGNOSIS AND TREATMENT 2018-12-24 18:40:12 Doctor Unassigned, Opolis [facility] ASSIGNMENT OF BENEFITS 2018-12-24 18:39:58 Docto r Unassigned, Opolis [facility] Repair of Heart [facility] Graft of Skin to Skin [facility] Procedure on Bladder [facility] Total Hysterectomy [facility] Plan of Care Planned Activity Planned Date Details Comments Source Diagnostic Test Pending 2022-02-02 00:00:00 CMP, serum or plasma [code = CMP, serum or plasma] [facility] Encounters Start Date/Time End Date/Time Encounter Type Admission Type Attending Clinicians Care Facility Care Department Encounter ID Source 2024-02-06 12:45:00 Outpatient Crockett, Grabiel [facility] [id number] [facility] 2024-02-05 09:26:00 Outpatient Crockett, Grabiel [facility] [id number] [facility] 2024-02-04 16:30:00 Outpatient Crockett, Grabiel [facility] [id number] [facility] 2024-02-04 10:00:00 2024-02-04 10:00:00 Outpatient R ZAIRE ACOSTA ZAIRE [facility] [id number] [facility] 2024-01-30 00:00:00 2024-01-31 11:15:29 Telephone Zaire Acosta Zaire [facility] [id number] 350.1.13.10 4.2.7.2.686 [id number] [facility] 2024-01-30 17:27:00 2024-01-30 19:59:00 Emergency X PHILL DASILVA JOSEPH [facility] ERT [id number] [facility] 2024-01-30 17:27:00 2024-01-30 19:59:[address] [facility] [id number] 350.1.13.10 4.2.7.2.686 [id number] [facility] 2024-01-03 13:00:00 2024-01-03 14:00:00 Initial D2Me Anusha Irene 2.16.840. [id number]. [id number] [facility] 2023-10-28 00:00:00 2023-10-28 00:00:00 Outpatient R RADIOLOGY [facility] [id number] [facility] 2023-09-28 19:52:00 2023-09-28 21:55:00 Emergency X OLIVIER ZAVALETA ANDRES [facility] ERT [id number] [facility] 2023-09-28 19:52:00 2023-09-28 21:55:00 Emergency Olivier Zavaleta [facility] 1.2840.114 350.1.13.10 4.2.7.2.686 [id number] [facility] 2022-10-23 00:00:00 2022-10-23 00:00:00 Orders Only Doctor Unassigned, Opolis [facility] 1.840.114 350.1.13.10 4.2.7.2.686 [id number] [facility] 2022-10-18 14:19:14 2022-10-18 23:59:00 Outpatient R RADIOLOGY [facility] [id number] [facility] 2022-10-18 14:19:14 2022-10-18 23:59:00 Hospital Encounter Radiology [facility] 1.2840.114 350.1.13.10 4.2.7.2.686 [id number] [facility] 2022-10-18 15:30:00 2022-10-18 15:45:00 Material Handling Crew Supervisor Visit Pob, Adc Lab Main Jose Solorio [facility] 1.840.114 350.1.13.10 4.2.7.2.686 [id number] [facility] 2022-10-18 00:00:00 2022-10-18 00:00:00 Orders Only Doctor Unassigned, Opolis [facility] 1.2840.114 350.1.13.10 4.2.7.2.686 [id number] [facility] 2022-09-22 00:00:00 2022-09-22 00:00:00 Outpatient ERICKSON_R [facility] [id number] [facility] 2022-08-30 16:51:00 2022-08-30 23:59:00 Outpatient R RADIOLOGY [facility] [id number] [facility] 2022-08-30 16:30:00 2022-08-30 23:59:00 Hospital Encounter Radiology [facility] 1.2.840.114 350.1.13.10 4.2.7.2.686 [id number] [facility] 2022-08-18 00:00:00 2022-08-18 00:00:00 Outpatient ERICKSON_R [facility] [id number] [facility] 2022-05-18 00:00:00 2022-05-18 00:00:00 Outpatient ERICKSON_R [facility] [id number] [facility] 2022-05-10 00:00:00 2022-05-10 00:00:00 Outpatient ERICKSON_R [facility] [id number] [facility] 2022-05-10 00:00:00 2022-05-10 00:00:00 Merrill Horton, DO: [address], [place] [address] , Ph. [phone] [facility], DR[facility] HORTON [id number] [facility] 2022-05-07 00:00:00 2022-05-07 00:00:00 Outpatient ERICKSON_R [facility] [id number] [facility] 2022-04-01 14:23:00 2022-04-01 15:08:00 Emergency X MAKENZIE DUBOIS [facility] ERT [id number] [facility] 2022-04-01 14:23:00 2022-04-01 15:08:00 Emergency Makenzie Dubois [facility] 1.2.840.114 350.1.13.10 4.2.7.2.686 [id number] [facility] 2022-02-02 00:00:00 2022-02-02 00:00:00 Outpatient ERICKSON_R [facility] [id number] [facility] 2022-02-02 00:00:00 2022-02-02 00:00:00 Merrill Horton, DO: [address], [place] [address] , Ph. [phone] [facility], [address] [place] [id number] [facility] 2022-02-02 00:00:00 2022-02-02 00:00:00 Outpatient Merrill Horton [facility] [id number] 2021-12-26 00:00:00 2021-12-26 00:00:00 Outpatient ERICKSON_R [facility] [id number] [facility] 2021-11-21 01:42:00 2021-11-21 01:42:00 Outpatient ERICKSON_R [facility] [id number] [facility] 2021-10-17 02:30:00 2021-10-17 02:30:00 Outpatient ERICKSON_R [facility] [id number] [facility] 2021-09-15 01:07:00 2021-09-15 01:07:00 Outpatient ERICKSON_R [facility] [id number] [facility] 2021-09-15 00:00:00 2021-09-15 00:00:00 Merrill Horton, DO: [address] [place] [address] , Ph. [facility], DR[address] [place] [id number] [facility] 2021-09-15 00:00:00 2021-09-15 00:00:00 Outpatient Merrill Horton [facility] [id number] 2021-08-19 15:02:33 2021-08-19 23:59:[address] [facility] [id number] [facility] 2021-08-19 15:02:33 2021-08-19 23:59:[address] [facility] ([facility]) 1.2.840.114 350.1.13.10 4.2.7.2.686 [id number] [facility] 2021-08-03 11:55:00 2021-08-03 11:55:00 Outpatient ERYURION_R [facility] [id number] [facility] 2021-08-03 00:00:00 2021-08-03 00:00:00 Merrill Horton, DO: [address] [place] [address] , Ph. [facility], [facility] [place] [id number] [facility] 2021-08-03 00:00:00 2021-08-03 00:00:00 Outpatient Merrill Horton [facility] [id number] 2021-07-15 02:50:00 2021-07-15 02:50:00 Outpatient ERICKSON_R [facility] [id number] [facility] 2021-07-04 10:50:00 2021-07-04 10:50:00 Outpatient ERICKSON_R [facility] [id number] [facility] 2021-07-04 00:00:00 2021-07-04 00:00:00 Merrill Horton, DO: [address], [address], [place] [address] , Ph. [phone] [facility], [address] [place] [id number] [facility] 2021-07-04 00:00:00 2021-07-04 00:00:00 Outpatient Merrill Horton [facility] [id number] 2021-06-10 03:31:00 2021-06-10 03:31:00 Outpatient ERYAN_R [facility] [id number] [facility] 2021-06-03 00:00:00 2021-06-03 00:00:00 Telephone Only, Ang Db Test [facility] 1.2.840.114 350.1.13.10 4.2.7.2.686 [id number] [facility] 2021-06-02 18:45:00 2021-06-02 19:00:00 Laboratory Only Only, Ang Db Test Rebecca Black [facility] 1.2.840.114 350.1.13.10 4.2.7.2.686 [id number] [facility] 2021-06-02 18:45:00 2021-06-02 18:45:00 Outpatient REBECCA TANNER [facility] [id number] [facility] 2021-05-06 04:11:00 2021-05-06 04:11:00 Outpatient ERICKSON_R [facility] [id number] [place] [facility] 2021-02-06 00:00:00 2021-02-06 00:00:00 Letter (Out) Zaira Salvador [facility] 1..840.114 350.1.13.10 4.2.7.2.686 [id number] [facility] 2021-02-06 00:00:00 2021-02-06 00:00:00 Telephone Pcp, Patient Does Not Have A [facility] malik Miller 1.2.840.114 350.1.13.10 4.2.7.2.686 [id number] [facility] 2021-02-04 19:15:00 2021-02-04 19:12:59 Outpatient Suzette PRICE NAIN [facility] [id number] [facility] 2021-02-04 18:28:13 2021-02-04 18:43:13 Laboratory Only Only, Ang Db [facility] 1.2.840.114 350.1.13.10 4.2.7.2.686 [id number] [facility] 2021-01-23 11:41:00 2021-01-23 11:41:00 Outpatient ERICKSON_R [facility] [id number] [facility] 2021-01-23 00:00:00 2021-01-23 00:00:00 Outpatient Merrill Horton [facility] [id number] 2021-01-23 00:00:00 2021-01-23 00:00:00 Outpatient Merrill Horton [facility] [id number] 2021-01-23 00:00:00 2021-01-23 00:00:00 Merrill Horton, DO: [address], [place] [address] , Ph. [facility], [facility] [id number] [facility] 2021-01-03 12:57:00 2021-01-03 12:57:00 Outpatient ERICKSON_R [facility] [id number] [facility] 2020-12-20 01:23:00 2020-12-20 01:23:00 Outpatient ERICKSON_R [facility] [id number] [facility] 2020-11-29 12:34:00 2020-11-29 12:34:00 Outpatient ERICKSON_R [facility] [id number] 2020-09-30 12:34:00 2020-09-30 12:34:00 Outpatient ERICKSON_R [facility] [id number] 2020-09-30 00:00:00 2020-09-30 00:00:00 Outpatient Merrill Horton [facility] [id number] 2020-09-30 00:00:00 2020-09-30 00:00:00 Outpatient Merrill Horton [facility] [id number] 2020-09-30 00:00:00 2020-09-30 00:00:00 Merrill Horton, DO: [address], [place] [address] , Ph. [facility], DR. HORTON [id number] [facility] 2020-09-09 03:35:00 2020-09-09 03:35:00 Outpatient ERICKSON_R [facility] [id number] [facility] 2020-09-09 00:00:00 2020-09-09 00:00:00 Merrill Horton, DO: [address] [place] [address] , Ph. [facility], DR. HORTON [id number] [facility] 2020-09-09 00:00:00 2020-09-09 00:00:00 Outpatient Merrill Horton [facility] [id number] 2020-09-06 12:14:00 2020-09-06 12:14:00 Outpatient ERICKSON_R [facility] [id number] [facility] 2020-09-06 00:00:00 2020-09-06 00:00:00 Merrill Horton, DO: [address] [place] [address] , Ph. [facility], DR. HORTON [id number] [facility] 2020-09-06 00:00:00 2020-09-06 00:00:00 Outpatient Merrill Horton [facility] [id number] 2020-08-25 04:17:00 2020-08-25 04:17:00 Outpatient ERICKSON_R [facility] [id number] [facility] 2020-08-16 04:17:00 2020-08-16 04:17:00 Outpatient ERICKSON_R [facility] [id number] [facility] 2020-08-16 00:00:00 2020-08-16 00:00:00 Merrill Horton, DO: [address], [place] [address] , Ph. [facility], DR[facility] HORTON [id number] [facility] 2020-08-16 00:00:00 2020-08-16 00:00:00 Outpatient Merrill Horton [facility] [id number] 2020-08-04 01:01:00 2020-08-04 01:01:00 Outpatient ERICKSON_R [facility] [id number] [facility] 2020-07-22 10:57:00 2020-07-22 10:57:00 Outpatient ERICKSON_R [facility] [id number] [facility] 2020-07-22 10:57:00 2020-07-22 10:57:00 Outpatient ERICKSON_R [facility] [id number] [facility] 2020-07-19 12:25:00 2020-07-19 12:25:00 Outpatient ERICKSON_R [facility] [id number] [facility] 2020-07-19 00:00:00 2020-07-19 00:00:00 Outpatient Merrill Horton [facility] [id number] 2020-07-19 00:00:00 2020-07-19 00:00:00 Merrill Horton, DO: [address], [place] [address] , Ph. [facility], DR[facility] HORTON [id number] [facility] 2018-12-24 13:30:00 2018-12-24 23:59:00 Hospital Encounter Rayne Summers i [facility] [id number] [facility] Results Test Description Test Time Test Comments Results Result Comments Source Splint Application 00:30:59 Ifeanyi Corley MD ? ? 01/30/2024 ?7:31 PMSplint Application Date/Time: 01/30/2024 7:30 PM Performed by: Ifeanyi Corley MDAuthorized by: Ifeanyi Corley MD ?Consent: ?Consent obtained: ?Verbal ?Consent given by: ?Patient ?Risks discussed: ?Discoloration, numbness, pain and swelling ?Alternatives discussed: ?No treatmentUniversal protocol: ?Imaging studies available: yes ? ?Patient identity confirmed: ?Verbally with patient, arm band and hospital-assigned identification numberPre-procedure details: ?Distal neurologic exam: ?Normal ?Distal perfusion: distal pulses strong and brisk capillary refill ?Procedure details: ?Location: ?Arm ?Arm location: ?L lower arm ?Strapping: no ? ?Splint type: ?Sugar tong ?Supplies: ?FiberglassPost-proced ure details: ?Distal neurologic exam: ?Normal ?Distal perfusion: distal pulses strong ? ?Procedure completion: ?[facility] [id number] 05:58:25* Test Item Value Reference Range Interpretation Comme nts AFP (test code = 3313471993) 1.6 ng/mL <=7.5 ATUL (test code = ATUL) Biotin has been reported to cause a negative bias, interpret results relative to patient's use of biotin. Lab Interpretation (test code = 06277-0) [facility] 21:58:30* Test Item Value Reference Range Interpretation Comme nts MAGNESIUM (test code = 2790960607) 2.0 mg/dL 1.7-2.4 Lab Interpretation (test cod e = 79442-1) Normal [facility] (95418) (ALB,T.PRO,BILI T,BU/BC,ALT,AST,ALK PHOS)2022-10-18 21:58:30* Test Item Value Reference Range Interpretation Comme nts TOTAL BILI (test code = 5008585606) 0.7 mg/dL 0.1-1.1 BILI UNCON (test code = 9057020712) 0.7 mg/dL 0.1-1.1 BILI CONJ (test code = 1717241993) 0.0 mg/dL 0.0-0.3 T PROTEIN (test code = 9001016607) 7.0 g/dL 6.3-8.2 ALBUMIN (test code = 5765390947) 4.1 g/dL 3.5-5.0 ALK PHOS (test code = 9384276458) 146 U/L 34-122 H ALTv (test code = 1742-6) 23 U/L 5-35 AST(SGOT) (test code = 2128922437) 28 U/L 13-40 Lab Interpretation (test cod e = 26492-8) Abnormal [facility] [id number] 21:58:30* Test Item Value Reference Range Interpretation Comme nts LDH (test code = 8018316351) 284 U/L 120-246 H Lab Interpretation (test cod e = 68305-1) [facility]normal [facility]2023-[facility]-25 21:58:30* Test Item Value Reference Range Interpretation Comme nts MAGNESIUM (test code = 4243800271) 2.0 mg/dL 1.7-2.4 Lab Interpretation (test cod e = 35079-8) Normal [facility] (11891) (ALB,T.PRO,BILI T,BU/BC,ALT,AST,ALK PHOS)2022-10-18 21:58:30* Test Item Value Reference Range Interpretation Comme nts TOTAL BILI (test code = 5358702652) 0.7 mg/dL 0.1-1.1 BILI UNCON (test code = 4444853275) 0.7 mg/dL 0.1-1.1 BILI CONJ (test code = 5210197316) 0.0 mg/dL 0.0-0.3 T PROTEIN (test code = 6015992037) 7.0 g/dL 6.3-8.2 ALBUMIN (test code = 4850384378) 4.1 g/dL 3.5-5.0 ALK PHOS (test code = 1993342123) 146 U/L 34-122 H ALTv (test code = 1742-6) 23 U/L 5-35 AST(SGOT) (test code = 6616670395) 28 U/L 13-40 Lab Interpretation (test cod e = 37937-1) Abnormal [facility] CenterLACT[facility] [id number] 21:58:30* Test Item Value Reference Range Interpretation Comme nts LDH (test code = 2980731126) 284 U/L 120-246 H Lab Interpretation (test cod e = 19443-6) Abnormal [facility]2023-05-25 21:58:30* Test Item Value Reference Range Interpretation Comme nts MAGNESIUM (test code = 6592549578) 2.0 mg/dL 1.7-2.4 Lab Interpretation (test cod e = 23967-8) Normal [facility] (40141) (ALB,T.PRO,BILI T,BU/BC,ALT,AST,ALK PHOS)2022-10-18 21:58:30* Test Item Value Reference Range Interpretation Comme nts TOTAL BILI (test code = 1202586088) 0.7 mg/dL 0.1-1.1 BILI UNCON (test code = 8561310279) 0.7 mg/dL 0.1-1.1 BILI CONJ (test code = 3093063214) 0.0 mg/dL 0.0-0.3 T PROTEIN (test code = 7252181313) 7.0 g/dL 6.3-8.2 ALBUMIN (test code = 8755798088) 4.1 g/dL 3.5-5.0 ALK PHOS (test code = 6513060655) 146 U/L 34-122 H ALTv (test code = 1742-6) 23 U/L 5-35 AST(SGOT) (test code = 5940708744) 28 U/L 13-40 Lab Interpretation (test cod e = 39641-9) Abnormal [facility] CenterLA[facility] [id number] 21:58:30* Test Item Value Reference Range Interpretation Comme nts LDH (test code = 5515727184) 284 U/L 120-246 H Lab Interpretation (test cod e = 59479-3) Abnormal [facility]2023-05-25 21:58:30* Test Item Value Reference Range Interpretation Comme nts MAGNESIUM (test code = 2786005986) 2.0 mg/dL 1.7-2.4 Lab Interpretation (test cod e = 94108-6) Normal [facility] (10678) (ALB,T.PRO,BILI T,BU/BC,ALT,AST,ALK PHOS)2022-10-18 21:58:30* Test Item Value Reference Range Interpretation Comme nts TOTAL BILI (test code = 3606520263) 0.7 mg/dL 0.1-1.1 BILI UNCON (test code = 8665396610) 0.7 mg/dL 0.1-1.1 BILI CONJ (test code = 0815789721) 0.0 mg/dL 0.0-0.3 T PROTEIN (test code = 9294997182) 7.0 g/dL 6.3-8.2 ALBUMIN (test code = 0667891530) 4.1 g/dL 3.5-5.0 ALK PHOS (test code = 0799584137) 146 U/L 34-122 H ALTv (test code = 1742-6) 23 U/L 5-35 AST(SGOT) (test code = 0844921162) 28 U/L 13-40 Lab Interpretation (test cod e = 52164-7) Abnormal [facility] CenterLA[facility] [id number] 21:58:30* Test Item Value Reference Range Interpretation Comme nts LDH (test code = 5627177021) 284 U/L 120-246 H Lab Interpretation (test cod e = 11673-8) Abnormal [facility]2023-05-25 21:58:10* Test Item Value Reference Range Interpretation Comme nts CALCIUM (test code = 6037454268) 9.0 mg/dL 8.6-10.6 Lab Interpretation (test cod e = 99354-2) Normal [facility]2023-[facility]-25 21:58:10* Test Item Value Reference Range Interpretation Comme nts CALCIUM (test code = 6434625766) 9.0 mg/dL 8.6-10.6 Lab Interpretation (test cod e = 02838-1) Normal [facility]20[facility] 21:58:10* Test Item Value Reference Range Interpretation Comme nts CALCIUM (test code = 6106182612) 9.0 mg/dL 8.6-10.6 Lab Interpretation (test cod e = 97964-4) Normal [facility]2023-[facility]-25 21:58:10* Test Item Value Reference Range Interpretation Comme nts CALCIUM (test code = 9896338157) 9.0 mg/dL 8.6-10.6 Lab Interpretation (test cod e = 23816-3) Normal [facility] - Platelet poor plasma by Coagulation [id number] 00:00:00* Test Item Value Reference Range Interpretation Comme nts INR in Platelet poor plasma by Coagulation assay (test code = 6301-6) 1.4 0.9-1.2 H Prothrombin time (PT) (test code = 5902-2) 14.6 sec 9.1-12.0 H [facility][id number] 00:00:00* Test Item Value Reference Range Interpretation Comme nts INR in Platelet poor plasma by Coagulation assay (test code = 6301-6) 2.8 0.9-1.2 H Prothrombin time (PT) (test code = 5902-2) 27.7 sec 9.1-12.0 H [facility]PT/[id number] 00:00:00* Test Item Value Reference Range Interpretation Comme nts INR in Platelet poor plasma by Coagulation assay (test code = 6301-6) 2.3 0.9-1.2 H Prothrombin time (PT) (test code = 5902-2) 23.3 sec 9.1-12.0 H [facility]PT/[id number] 00:00:00* Test Item Value Reference Range Interpretation Comme nts INR in Platelet poor plasma by Coagulation assay (test code = 6301-6) 1.2 0.9-1.2 Prothrombin time (PT) (test code = 5902-2) 12.1 sec 9.1-12.0 H [facility] CenterUrinalysis macro (dipstick) panel - Urine 2020-09-09 14:21:00* Test Item Value Reference Range Interpretation Comme nts Leukocytes (test code = Leukocytes) Small Nitrite (test code = Nitrite) negative Urobilinogen (test code = Urobilinogen) .2 Protein (test code = Protein) Trace pH (test code = pH) 5.0 Blood (test code = Blood) Negative Specific Eldred (test code = Specific Eldred) 1.015 Ketone (test code = Ketone) Negative Bilirubin (test code = Bilirubin) Negative Glucose (test code = Glucose) Negative Appearance (test code = Appearance) Clear Color (test code = Color) Pale Yellow [facility] CenterCB W Auto Differential panel - [id number] 00:00:00* Test Item Value Reference Range Interpretation Comme nts Leukocytes [#/volume] in Blo od by Automated count (test code = 6690-2) 3.6 x10e3/uL 3.4-10.8 Erythrocytes [#/volume] in Blood by Automated count (test code = 789-8) 4.14 x10e6/uL 3.77-5.28 Hemoglobin [Mass/volume] in Blood (test code = 718-7) 11.3 g/dL 11.1-15.9 Hematocrit [Volume Fraction] of Blood by Automated count (test code = 4544-3) 35.1 % 34.0-46.6 Erythrocyte mean corpuscular volume [Entitic volume] by Automated count (test code = 787-2) 85 fL 79-97 Erythrocyte mean corpuscular hemoglobin [Entitic mass] by Automated count (test code = 785-6) 27.3 pg 26.6-33.0 Erythrocyte mean corpuscular hemoglobin concentration [Mass/volume] by Automated count (test code = 786-4) 32.2 g/dL 31.5-35.7 Erythrocyte distribution wid th [Ratio] by Automated count (test code = 788-0) 13.5 % 11.7-15.4 Platelets [#/volume] in Bloo d by Automated count (test code = 777-3) 230 x10e3/uL 150-450 Neutrophils/100 leukocytes i n Blood by Automated count (test code = 770-8) 52 % not estab. Lymphocytes/100 leukocytes i n Blood by Automated count (test code = 736-9) 34 % not estab. Monocytes/100 leukocytes in Blood by Automated count (test code = 5905-5) 9 % not estab. Eosinophils/100 leukocytes i n Blood by Automated count (test code = 713-8) 4 % not estab. Basophils/100 leukocytes in Blood by Automated count (test code = 706-2) 1 % not estab. immature cells (test code = immature cells) railway engineer Neutrophils [#/volume] in Bl ood by Automated count (test code = 751-8) 1.9 x10e3/uL 1.4-7.0 Lymphocytes [#/volume] in Bl ood by Automated count (test code = 731-0) 1.2 x10e3/uL 0.7-3.1 Monocytes [#/volume] in Bloo d by Automated count (test code = 742-7) 0.3 x10e3/uL 0.1-0.9 Eosinophils [#/volume] in Bl ood by Automated count (test code = 711-2) 0.1 x10e3/uL 0.0-0.4 Basophils [#/volume] in Bloo d by Automated count (test code = 704-7) 0.0 x10e3/uL 0.0-0.2 Immature granulocytes/100 leukocytes in Blood by Automated count (test code = 19983-0) 0 % not estab. Immature granulocytes [#/volume] in Blood by Automated count (test code = 00022-0) 0.0 x10e3/uL 0.0-0.1 Nucleated erythrocytes/100 leukocytes [Ratio] in Blood by Automated count (test code = 90024-3) railway engineer Morphology [Interpretation] in Blood Narrative (test code = 25877-1) railway engineer [facility] metabolic 2000 panel - Serum or Plasma 2020-09-08 00:00:00* Test Item Value Reference Range Interpretation Comme nts Glucose [Mass/volume] in Serum or Plasma (test code = 2345-7) 88 mg/dL 65-99 Urea nitrogen [Mass/volume] in Serum or Plasma (test code = 3094-0) 15 mg/dL 6-24 Creatinine [Mass/volume] in Serum or Plasma (test code = 2160-0) 0.74 mg/dL 0.57-1.00 Glomerular filtration rate/1.73 sq M.predicted among non-blacks [Volume Rate/Area] in Serum, Plasma or Blood by Creatinine-based formula (CKD-EPI) (test code = 79224-3) 90 mL/min/1.73 >59 Glomerular filtration rate/1.73 sq M.predicted among blacks [Volume Rate/Area] in Serum, Plasma or Blood by Creatinine-based formula (CKD-EPI) (test code = 54489-5) 104 mL/min/1.73 >59 Urea nitrogen/Creatinine [Mass Ratio] in Serum or Plasma (test code = 3097-3) 20 9-23 Sodium [Moles/volume] in Serum or Plasma (test code = 2951-2) 142 mmol/L 134-144 Potassium [Moles/volume] in Serum or Plasma (test code = 2823-3) 4.1 mmol/L 3.5-5.2 Chloride [Moles/volume] in Serum or Plasma (test code = 2075-0) 104 mmol/L 96-106 Carbon dioxide, total [Moles/volume] in Serum or Plasma (test code = 2028-9) 24 mmol/L 20-29 Calcium [Mass/volume] in Serum or Plasma (test code = 72186-8) 9.0 mg/dL 8.7-10.2 [facility] macro (dipstick) panel - Urine 2020-09-06 11:15:00* Test Item Value Reference Range Interpretation Comme nts Leukocytes (test code = Leukocytes) Large Nitrite (test code = Nitrite) negative Urobilinogen (test code = Urobilinogen) 4 Protein (test code = Protein) 30 pH (test code = pH) 6.0 Blood (test code = Blood) Large Specific Eldred (test code = Specific Eldred) 1.025 Ketone (test code = Ketone) Small Bilirubin (test code = Bilirubin) Large Glucose (test code = Glucose) Negative Appearance (test code = Appearance) Clear Color (test code = Color) Red [facility]/[id number] 00:00:00* Test Item Value Reference Range Interpretation Comme nts INR in Platelet poor plasma by Coagulation assay (test code = 6301-6) 2.3 0.9-1.2 H Prothrombin time (PT) (test code = 5902-2) 23.1 sec 9.1-12.0 H [facility]PT/[id number] 00:00:00* Test Item Value Reference Range Interpretation Comme nts INR in Platelet poor plasma by Coagulation assay (test code = 6301-6) 1.7 0.9-1.2 H Prothrombin time (PT) (test code = 5902-2) 17.6 sec 9.1-12.0 H [facility] CenterHemoglobin A1c/Hemoglobin.total in Blood 2020-07-21 00:00:00* Test Item Value Reference Range Interpretation Comme nts Hemoglobin A1c/Hemoglobin.to riddhi in Blood (test code = 4548-4) 5.3 % 4.8-5.6 [facility]PT/[id number] 00:00:00* Test Item Value Reference Range Interpretation Comme nts INR in Platelet poor plasma by Coagulation assay (test code = 6301-6) 2.4 0.9-1.2 H Prothrombin time (PT) (test code = 5902-2) 23.7 sec 9.1-12.0 H [facility] Center[facility] specimen [id number] 00:00:00* Test Item Value Reference Range Interpretation Comme nts one specimen identifier (noel t code = one specimen identifier) comment [facility] W Auto Differential panel - [id number] 00:00:00* Test Item Value Reference Range Interpretation Comme nts Leukocytes [#/volume] in Blo od by Automated count (test code = 6690-2) 4.7 x10e3/uL 3.4-10.8 Erythrocytes [#/volume] in Blood by Automated count (test code = 789-8) 4.48 x10e6/uL Hemoglobin [Mass/volume] in Blood (test code = 718-7) 12.4 g/dL Hematocrit [Volume Fraction] of Blood by Automated count (test code = 4544-3) 38.9 % Erythrocyte mean corpuscular volume [Entitic volume] by Automated count (test code = 787-2) 87 fL Erythrocyte mean corpuscular hemoglobin [Entitic mass] by Automated count (test code = 785-6) 27.7 pg Erythrocyte mean corpuscular hemoglobin concentration [Mass/volume] by Automated count (test code = 786-4) 31.9 g/dL Erythrocyte distribution wid th [Ratio] by Automated count (test code = 788-0) 13.5 % Platelets [#/volume] in Bloo d by Automated count (test code = 777-3) 212 x10e3/uL 150-450 Neutrophils/100 leukocytes i n Blood by Automated count (test code = 770-8) 64 % not estab. Lymphocytes/100 leukocytes i n Blood by Automated count (test code = 736-9) 25 % not estab. Monocytes/100 leukocytes in Blood by Automated count (test code = 5905-5) 7 % not estab. Eosinophils/100 leukocytes i n Blood by Automated count (test code = 713-8) 3 % not estab. Basophils/100 leukocytes in Blood by Automated count (test code = 706-2) 1 % not estab. immature cells (test code = immature cells) railway engineer Neutrophils [#/volume] in Bl ood by Automated count (test code = 751-8) 3.0 x10e3/uL Lymphocytes [#/volume] in Bl ood by Automated count (test code = 731-0) 1.2 x10e3/uL Monocytes [#/volume] in Bloo d by Automated count (test code = 742-7) 0.3 x10e3/uL Eosinophils [#/volume] in Bl ood by Automated count (test code = 711-2) 0.1 x10e3/uL Basophils [#/volume] in Bloo d by Automated count (test code = 704-7) 0.0 x10e3/uL Immature granulocytes/100 leukocytes in Blood by Automated count (test code = 85954-8) 0 % not estab. Immature granulocytes [#/volume] in Blood by Automated count (test code = 32511-3) 0.0 x10e3/uL Nucleated erythrocytes/100 leukocytes [Ratio] in Blood by Automated count (test code = 82273-3) railway engineer Morphology [Interpretation] in Blood Narrative (test code = 27603-2) railway engineer [facility] 2000 panel - Serum or [id number] 00:00:00* Test Item Value Reference Range Interpretation Comme nts Glucose [Mass/volume] in Ser um or Plasma (test code = 2345-7) 90 mg/dL 65-99 Urea nitrogen [Mass/volume] in Serum or Plasma (test code = 3094-0) 15 mg/dL Creatinine [Mass/volume] in Serum or Plasma (test code = 2160-0) 0.85 mg/dL Glomerular filtration rate/1 .73 sq M.predicted among non-blacks [Volume Rate/Area] in Serum, Plasma or Blood by Creatinine-based formula (CKD-EPI) (test code = 87587-3) tnp Glomerular filtration rate/1 .73 sq M.predicted among blacks [Volume Rate/Area] in Serum, Plasma or Blood by Creatinine-based formula (CKD-EPI) (test code = 83190-2) tnp Urea nitrogen/Creatinine [Ma ss Ratio] in Serum or Plasma (test code = 3097-3) 18 Sodium [Moles/volume] in Ser um or Plasma (test code = 2951-2) 140 mmol/L 134-144 Potassium [Moles/volume] in Serum or Plasma (test code = 2823-3) 3.8 mmol/L 3.5-5.2 Chloride [Moles/volume] in S xena or Plasma (test code = 2074-0) 103 mmol/L 96-106 Carbon dioxide, total [Moles/volume] in Serum or Plasma (test code = 2027-9) 26 mmol/L 20-29 Calcium [Mass/volume] in Ser um or Plasma (test code = 25347-5) 9.0 mg/dL Protein [Mass/volume] in Ser um or Plasma (test code = 2885-2) 7.1 g/dL 6.0-8.5 Albumin [Mass/volume] in Ser um or Plasma (test code = 1751-7) 4.5 g/dL 3.8-4.9 Globulin [Mass/volume] in Se rum by calculation (test code = 34524-9) 2.6 g/dL 1.5-4.5 Albumin/Globulin [Mass Ratio ] in Serum or Plasma (test code = 1759-0) 1.7 1.2-2.2 Bilirubin.total [Mass/volume ] in Serum or Plasma (test code = 1974-) 0.4 mg/dL 0.0-1.2 Alkaline phosphatase [Enzyma tic activity/volume] in Serum or Plasma (test code = 6768-6) 154 IU/L Aspartate aminotransferase [Enzymatic activity/volume] in Serum or Plasma (test code = 1920-8) 15 IU/L 0-40 Alanine aminotransferase [Enzymatic activity/volume] in Serum or Plasma (test code = 1742-6) 16 IU/L [facility] Center[facility] 1996 panel - Serum or [id number] 00:00:00* Test Item Value Reference Range Interpretation Comme nts Cholesterol [Mass/volume] in Serum or Plasma (test code = 2093-3) 131 mg/dL Triglyceride [Mass/volume] i n Serum or Plasma (test code = 2571-8) 105 mg/dL Cholesterol in HDL [Mass/vol ume] in Serum or Plasma (test code = 2085-9) 61 mg/dL >39 Cholesterol in VLDL [Mass/vo lume] in Serum or Plasma by calculation (test code = 21878-4) 19 mg/dL 5-40 Cholesterol in LDL [Mass/vol ume] in Serum or Plasma by calculation (test code = 55150-6) 51 mg/dL Laboratory comment [Text] in Report Narrative (test code = 76050-3) railway engineer [facility] CenterThyrotropin [Units/volume] in Serum or Plasma by Detection limit <= 0.005 mIU/[id number] 00:00:00* Test Item Value Reference Range Interpretation Comme nts Thyrotropin [Units/volume] i n Serum or Plasma by Detection limit <= 0.005 mIU/L (test code = 37060-7) 1.890 uIU/mL 0.450-4.500 [facility]PT/[id number] 00:00:00* Test Item Value Reference Range Interpretation Comme nts INR in Platelet poor plasma by Coagulation assay (test code = 6301-6) 2.1 0.9-1.2 H Prothrombin time (PT) (test code = 5902-2) 21.0 sec 9.1-12.0 H [facility] CenterXR LUMBAR SPINE 2 [id number] 19:09:52 HISTORY:?Low back pain. FINDINGS: AP, lateral and spot views of the lumbar spines showed 5 lumbarvertebrae with no acute compression fracture or dislocation. No aggressivebone lesions. L2-L3: Disc space is minimally narrowed without degenerative changes.L3-L4: Disk space is narrowed by approximately 5% with minimal degenerativechanges of the vertebral margins.L4-L5: Disc space is narrowed by approximately 40-50% with grade 1spondylolisthesis of L4 over L5 and bilateral facet arthritis.L5-S1: Disc space is minimally narrowed with endplate sclerosis noted inthe lower L5 and minimal retrolisthesis of L5 over S1 with bilateral facetarthritis. No significant atherosclerotic constipation seen in t he abdominal aorta. CONCLUSIONS:1. No fracture. No aggressive bone lesions.2. Degenerative disc disease at L4-L5, L5-S1, less at L2-L3, L3-L4, withgrade 1 spondylolisthesis at L4-L5 and lower 2 lumbar levels facetarthritis. Comb, Radiant Results Inft User - 12/24/2018 2:10 PM CDTHISTORY: Low back pa in.FINDINGS: AP, lateral and spot views of the lumbar spines showed 5 lumbarvertebrae with no acutecompression fracture or dislocation. No aggressivebone lesions.L2-L3: Disc space is minimally narrowed without degenerative changes.L3-L4: Disk space is narrowed by approximately 5% with minimal degenerativechanges of the vertebral margins.L4-L5: Disc space is narrowed by approximately 40-50% with grade 1spondylolisthesis of L4 over L5 and bilateral facet arthritis.L5-S1: Disc space is minimally narrowed with endplate sclerosis noted inthe lower L5 and minimal retrolisthesis of L5 over S1 with b ilateral facetarthritis.No significant atherosclerotic constipation seen in the abdominal aorta.CONCLUSIONS:1. No fracture. No aggressive bone lesions.2. Degenerative disc disease at L4-L5, L5-S1, less at L2-L3, L3-L4, withgrade 1 spondylolisthesis at L4-L5 and lower 2 lumbar levels facetarthritis.[facility] Notes Date/Time Note Provider Source 2024-01-31 11:14:54 Called patient, no answer. [facility] to schedule an appointment. Crsithian Troy [facility] 2024-01-30 23:54:23 Renuka Walls is a 58 year old female Pt has a stat order to see Dr. Acosta Next available appt is Feb 04 Nancyurbano DumasAarti [facility] 2024-01-30 19:31:47 [facility] ED Transfer of Care Note. Off-going Physician:Jamar Time of Transfer of Care: 1900PM Summary: Renuka Walls is a 58 year old female presenting with chief complaint of left forearm pain. Pending prior to disposition: Imaging Current interventions: Medications acetaminophen (TYLENOL) tablet 650 mg (has no administration in time range) traMADoL (ULTRAM) tablet 50 mg (has no administration in time range) ondansetron (ZOFRAN-ODT) disintegrating tablet 4 mg (has no administration in time range) Results: Labs Reviewed - No data to display XR HAND <3 VW LEFT Preliminary Result Intra-articular distal radial fracture with ulna fracture. Preliminary Report Dictated by Resident: Keren Hooker XR WRIST <3 VW LEFT Preliminary Result Intra-articular distal radial fracture with ulna fracture. Preliminary Report Dictated by Resident: Keren Hooker XR FOREARM 2 VW LEFT Preliminary Result Intra-articular distal radial fracture with ulna fracture. Preliminary Report Dictated by Resident: Keren Hooker XR FOOT <3 VW LEFT Preliminary Result Intra-articular distal radial fracture with ulna fracture. Preliminary Report Dictated by Resident: Keren Hooker Procedures: Procedures Additional Notes: Diagnosis/Impression as of 01/30/24 1931 Fall, initial encounter Closed fracture of distal end of left radius, unspecified fracture morphology, initial encounter Closed fracture of distal end of right ulna, unspecified fracture morphology, initial encounter Medical Decision Making Amount and/or Complexity of Data Reviewed Radiology: ordered and independent interpretation performed. Decision-making details documented in ED Course. Risk OTC drugs. Prescription drug management. The patient was endorsed to me by Dr. Gibbons are pending x-rays. The patient has a distal radius and ulna fracture. She is Novastan intact. She gave verbal consent for sugar-tong. She was placed in a sugar-tong splint and placed in her sling. He was given tramadol sent home with tramadol. She was discharged follow-up with Dr. Acosta. She can return for any questions or concerns. Disposition: Discharged Home Social Determinants of Health: None ED Disposition ED Disposition Disch - Home Condition Stable Comment -- Contact information for follow-up Zaire Acosta MD Specialty: ORT-ORTHOPAEDIC SURGERY [id number] [id number] [facility] 2024-01-30 19:31:35 Associated Order(s): Splint Application Splint Application Date/Time: 01/30/2024 7:30 PM Performed by: Ifeanyi Colrey MD Authorized by: Ifeanyi Corley MD Consent: Consent obtained: Verbal Consent given by: Patient Risks discussed: Discoloration, numbness, pain and swelling Alternatives discussed: No treatment [place] protocol: Imaging studies available: yes Patient identity confirmed: Verbally with patient, arm band and hospital-assigned identification number Pre-procedure details: Distal neurologic exam: Normal Distal perfusion: distal pulses strong and brisk capillary refill Procedure details: Location: Arm Arm location: L lower arm Strapping: no Splint type: Sugar tong Supplies: Fiberglass Post-procedure details: Distal neurologic exam: Normal Distal perfusion: distal pulses strong Procedure completion: [facility] 2024-01-30 17:25:10 Patient was at [facility] around 1515 today and went to step up on curb but 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 She fell forward and injured her left arm (mainly wrist) but also has pain in forearm, and her left foot. No loc. Did not hit head. Ran Bahena RN [facility] - [facility] [place] 2024-01-30 17:17:00 [facility] Emergency Department Note Patient Name: Renuka Walls Date of : 1965 58 year old female Treatment Room: [facility] ED [facility] Primary Care Physician: Grabiel Crockett Patient Escorted by: Family [5] Mode of Arrival: Personal means [1] EMS Treatment Prior to ED Arrival: Travel and Exposure Screening: Symptoms Does patient have any of these symptoms?: (not recorded) Exposure Screening Has patient had contact with someone with a communicable disease in the last month?: (not recorded) Diseases exposed to:: (not recorded) Is Patient ?: (not recorded) Exposure Date: (not recorded) Chief Complaint: Chief Complaint Patient presents with Fall History of Present Illness: Very pleasant lady presents for mechanical fall onto left forearm which is in a sling d/t prior CVA. Pt reports left hand, wrist, and forearm pain, as well as left foot dorsal aspect pain. History provided by: Patient Past Medical History/Immunizations: Past Medical History: Diagnosis Date Chronic back pain CKD (chronic kidney disease) GERD (gastroesophageal reflux disease) Hypertension Incontinence Obesity Prolapsed uterus Allergies: Allergies Allergen Reactions Naproxen Rash Tetracycline Anaphylaxis Past Social History: Tobacco Use Never smoked or used smokeless tobacco. Past Surgical History: Past Surgical History: Procedure Laterality Date FULL MOUTH EXTRACTION WITH ALVEOLOPLASTY Bilateral 01/10/2017 Surgeon: Angelo Torres DMD; [facility] LAPAROSCOPIC BLADDER SUSPENSION N/A 12/24/2016 Surgeon: Toro Wing; Location: [facility] LAPAROSCOPIC LYSIS OF ADHESIONS (SHX) N/A 12/24/2016 Surgeon: Toro Wing; Location: [facility] LAPAROSCOPIC ROBOTIC ASSISTED SALPINGO-OOPHORECTOMY N/A 12/24/2016 Surgeon: Toro Wing; Location: [facility] LAPAROSCOPIC ROBOTIC ASSISTED VAGINAL HYSTERECTOMY N/A 12/24/2016 Surgeon: Toro Wing; Location: [facility] TUBAL LIGATION UTEROSACRAL VAGINAL VAULT SUSPENSION (SHX) N/A 12/24/2016 Surgeon: Toro Wing; Location: [facility] Location Review of Systems: Review of Systems Constitutional: Negative for activity change, appetite change, chills, diaphoresis, fatigue and fever. HENT: Negative for congestion, ear discharge, ear pain, facial swelling, hearing loss, sore throat, tinnitus, trouble swallowing and voice change. Eyes: Negative for photophobia, pain, discharge, redness, itching and visual disturbance. Respiratory: Negative for apnea, cough, choking, chest tightness, shortness of breath and stridor. Breasts: Negative for discharge. Cardiovascular: Negative for chest pain, palpitations and leg swelling. Gastrointestinal: Negative for abdominal distention, abdominal pain, blood in stool, diarrhea, nausea and vomiting. Genitourinary: Negative for dysuria, frequency, hematuria, flank pain, enuresis and difficulty urinating. Musculoskeletal: Positive for arthralgias. Negative for back pain, gait problem, joint swelling, myalgias, neck pain and neck stiffness. Skin: Negative for color change, pallor, rash and wound. Neurological: Negative for dizziness, syncope, facial asymmetry, speech difficulty, weakness, light-headedness and headaches. Psychiatric/Behavioral: Negative for agitation, confusion, hallucinations and self-injury. The patient is not nervous/anxious. Hematological: Negative for adenopathy, cold intolerance and heat intolerance. Does not bruise/bleed easily. Endocrine: Negative for cold intolerance, heat intolerance, polydipsia and polyphagia. Physical Exam: ED Triage Vitals [01/30/24 1726] Weight 131.5 kg (290 lb) Actual or estimated Height 1.651 m (5' 5") BP (!) 143/85 Pulse 74 Resp 20 Temp 36.8 ?C (98.2 ?F) Temp source Oral SpO2 100 % Measured on Room air Physical Exam Constitutional: General: She is not in acute distress. Appearance: She is well-developed. She is not ill-appearing, toxic-appearing or diaphoretic. HENT: Head: Normocephalic and atraumatic. Right Ear: External ear normal. Left Ear: External ear normal. Eyes: General: No scleral icterus. Right eye: No discharge. Left eye: No discharge. Neck: Trachea: No tracheal deviation. Cardiovascular: Rate and Rhythm: Normal rate and regular rhythm. Pulses: Normal pulses. Pulmonary: Effort: Pulmonary effort is normal. No respiratory distress. Breath sounds: Normal breath sounds. No stridor. No wheezing or rales. Abdominal: General: There is no distension. Palpations: Abdomen is soft. Tenderness: There is no abdominal tenderness. There is no guarding. Musculoskeletal: General: Tenderness and signs of injury present. No deformity. Cervical back: Normal range of motion and neck supple. Comments: Diffuse left hand, wrist, forearm ttp; mild left foot ttp dorsal aspect Skin: General: Skin is warm. Coloration: Skin is not pale. Findings: No erythema or rash. Neurological: Mental Status: She is alert and oriented to person, place, and time. Motor: No abnormal muscle tone. Psychiatric: Behavior: Behavior normal. Thought Content: Thought content normal. Judgment: Judgment normal. Radiology: No orders to display Lab Results: Lab Results - No data to display EKG: If EKG completed, see Procedure Note. Orders and Treatments: Orders Placed This Encounter Procedures XR HAND <3 VW LEFT XR WRIST <3 VW LEFT XR FOREARM 2 VW LEFT XR FOOT <3 VW LEFT Orders Placed This Encounter Medications acetaminophen (TYLENOL) tablet 650 mg First Provider Eval: ED Events Date/Time Event User Comments 01/30/24 1800 Medical Screening Begins PHILL DASILVA MD -- 01/30/24 1800 First Provider Evaluation PHILL DASILVA MD -- ED COURSE Diagnosis/Impression as of 01/30/24 1926 Fall, initial encounter Closed fracture of distal end of left radius, unspecified fracture morphology, initial encounter Closed fracture of distal end of right ulna, unspecified fracture morphology, initial encounter Procedures: Procedures MDM: Medical Decision Making DDx incl arm/hand contusion v sprain v fx v dislocation, foot sprain v fx, et al Amount and/or Complexity of Data Reviewed Radiology: ordered. Risk OTC drugs. Flowsheet Documentation: Disposition/Condition: ED Disposition None Signed out to next shift pending XRs Discharge Medications: Patient's Medications START taking these medications No medications on file CONTINUE taking these medications which have NOT CHANGED ACETAMINOPHEN (TYLENOL ARTHRITIS PAIN) 650 MG CR TABLET Take 1 tablet by mouth every 8 (eight) hours as needed for Pain. ASPIRIN 81 MG CHEWABLE TABLET Take 1 tablet by mouth daily. ATORVASTATIN 40 MG TABLET Take 1 tablet by mouth every evening. CALCIUM CARBONATE-VITAMIN D3 250-125 MG-UNIT PER TABLET Take 1 tablet by mouth 3 (three) times daily. CHLORHEXIDINE 0.12 % MOUTHWASH Swish and spit out 15 mL 2 (two) times daily. CLOPIDOGREL 75 MG TABLET Take 1 tablet by mouth daily.X 6 MOS.HG DOCUSATE 100 MG CAPSULE Take 1 capsule by mouth daily. MELOXICAM 15 MG TABLET Take 1 tablet by mouth in the morning. NORTRIPTYLINE 50 MG CAPSULE Take 1 capsule by mouth at bedtime. OMEPRAZOLE 20 MG CAPSULE Take 1 capsule by mouth daily. PHENYLEPHRINE 0.25 % SUPPOSITORY Insert 1 Suppository into rectum 2 (two) times daily. PREDNISONE 20 MG TABLET Take 2 tablets PO daily WARFARIN 2.5 MG TABLET Take 1 tablet by mouth every Saturday, and Saturday in the evening. WARFARIN 2.5 MG TABLET Take 0.5 tablets by mouth every Sat, Sat, Sat and Sat in the evening. START taking Modified Medications as Prescribed No medications on file STOP taking these medications No medications on file Follow-up: Electronically signed by: Phill Dasilva MD 01/30/241851 [facility] 2024-01-03 13:00:00 ASSESSMENT SUMMARY RENUKA WALLS is a 58 year old woman seen today by [facility] for a [facility] Comprehensive Visit. Urgent ConcernsNo urgent concerns Ordered TodayFIT Kit ordered Chart requests for Medical Records Follow-Ups ScheduledMember seen today for a [facility] encounter via OVR. -Patient IS compliant with medication regimen. -Patient did not need refills at today's appointment. -Past medical history and current medications reviewed. -Patient verbalizes no other acute complaints or concerns today . -[facility] follow up with member annually. -Member will continue under excellent care and management of PCP and specialists, follow up as scheduled. Additional CommentsSent Dealised text on [employer] device. Visit PurposeThese visits are scheduled to augment PCPs to close care and documentation gaps, reconcile medications, help patients make full use of their [facility] benefits and educate patients about their conditions. This visit DOES NOT replace the your Annual Medicare Visit with the patient. The member was encouraged to schedule an AWV with their PCP to review our visit summary & recommendations. See below for teaching and instruction given regarding specific diagnoses. Member verbalized understanding to all. Members Preferred Language Yi Patient Currently Located in their home state of [place], YES DIAGNOSIS [id number] - Hemiplegia and hemiparesis following cerebral infarction affecting left non-dominant sideE66.01 - Morbid (severe) obesity due to excess ygcfmankC60.42 - Body mass index [BMI] 45.0-49.9, zxlfeW19.81 - Unsteadiness on feetE78.5 - Hyperlipidemia, rvfcuofareyZ15.9 - Polyneuropathy, [id number] - Essential (primary) vxbxcyuuqpivL22.90 - Unspecified osteoarthritis, unspecified site PATIENT INTAKE Has the patient had an Annual Wellness Visit this calendar year?: AWV already completed MEDICATION RECONCILIATION Did you review the patient's prescription and non-prescription drugs, vitamins, herbal remedies, and other supplements, AND is the accompanying medication list documented in the medical record?: Yes GENERAL ASSESSMENT Feet: 5 Inches: 5 Pounds: 280 Patient BMI: 46.59 Dx: E66.01 - Morbid (severe) obesity due to excess calories Notes for E66.01: BMI: 46.59 -Morbid obesity. Member has lost 35 pounds since taking phentermine. Educated regarding the importance of lifestyle changes, regular cardiovascular activity as tolerated and calorie restriction to help improve and lower BMI Patient informed that a BMI in this range, due to an increase in unhealthy weight, increases the risk of diabetes and hypertension. Reviewed Silver [employer]neakers benefit. Follow with PCPDISCUSSED: Dietary counseling was provided Morbid obesity confirmed on physical exam: Yes Dx: Z68.42 - Body mass index [BMI] 45.0-49.9, adult Notes for Z68.42: BMI: 46.59 -Morbid obesity. Member has lost 35 pounds since taking phentermine. Educated regarding the importance of lifestyle changes, regular cardiovascular activity as tolerated and calorie restriction to help improve and lower BMI Patient informed that a BMI in this range, due to an increase in unhealthy weight, increases the risk of diabetes and hypertension. Reviewed Silver Sneakers benefit. Follow with PCP Supplemental oxygen status: Room Air Supplemental Oxygen Needs: Does not need supplemental oxygen Do you exercise regularly?: Yes Physical activity level during a typical week: Walking Reviewed Abrahan Britton ACTION: Counseled patient on health benefits of regular physical activity SUBSTANCE USE - Smoking History The patient denies a history of tobacco use SCREENING - Fall Risk Have you fallen in the past year?: Yes Do you feel unsteady when standing or walking?: Yes The patient takes the following class of medication which may increase the risk of falls: Antihypertensives: Yes The patient takes the following class of medication which may increase the risk of falls: Anticonvulsants: Yes DISCUSSED: Counseled the patient that one or more of the medications that the patient is taking is known to increase the risk of falls in the elderly Dx: R26.81 - Unsteadiness on feet Notes for R26.81: Member with falls, stated does feel unsteady with ambulation. use walker and cane. Reviewed safety measures to prevent falls and the importance of physical activity to help avoid falls. Ensure adequate lighting. Gave information on PERS device. - Sent SMS text.DISCUSSED: Counseled the patient on strategies to reduce the risk of falls DISCUSSED: [facility] coverage of [employer] and provided [employer] contact information SCREENING - DME & Home Health Does the patient use any durable medical equpiment?: Yes Walker: Yes Cane: Yes Does the patient use home health, physical therapy or custodial services?: No New orders, referrals, or any other assistance with DME or home health needed at this time?: No SCREENING: BREAST CANCER First, are you being treated for breast cancer at this time?: No Has the patient undergone a bilateral or two unilateral mastectomies?: No Have you had a mammogram since February 24, 2022?: Yes Select the year of the patient's bilateral mammogram: 2022 SCREENING: COLORECTAL CANCER COLORECTAL STATUS: NO KNOWN CA Has the member had a recent colon cancer screening?: No Appropriate Screening Do you have a plan to get screened?: NO CRC SCREENING SUPPORT REQUESTED: Ordering In-Home Fit Kit Would the patient like to complete a FIT test?: Yes GENERAL REVIEW OF SYSTEMS Chest Pain or Pressure: No Shortness of Breath at Rest or with Exertion: No Lower Extremity Edema: Yes Cardiovascular Symptoms Notes: wear compression hose. Wheezing: No Cough: Yes Pulmonary Symptoms Notes: allergies Urinary Incontinence: No Easy Bruising: No Balance Problems: Yes Review of systems negative unless otherwise indicated above PULMONARY - Chronic Lung Disease Signs or symptoms of an acute exacerbation of COPD?: No CARDIOVASCULAR - Congestive Heart Failure Signs or symptoms of an ACUTE EXACERBATION of chronic CHF?: No HEMATOLOGY - Thrombocytopenia/Senile Purpura Purpura on physical exam?: No NEUROLOGY - Stroke Previously recorded diagnosis of a cerebrovascular accident?: Yes Residual deficits?: Hemiplegia/Hemiparesis Laterality: Left Right-handed or left-handed?: Right-handed Dx: I69.354 - Hemiplegia and hemiparesis following cerebral infarction affecting left non-dominant side Notes for I69.354: Member with Right CVA in 2017 with left sided deficits. Currently with noted Left sided weakness, left hand paralysis Compliant with prescribed: aspirin, Amlodipine, Atorvastatin, HCTZ, Carvedilol importance of BP control discussed with patient Follows a low fat diet Exercise regimen encouragedDISCUSSED: Discuss the importance of secondary prevention with aspirin, statin, exercise, and smoking cessation COMMON DIAGNOSES The patient has a diagnosis of hyperlipidemia: Yes The patient has a diagnosis of hypertension: Yes The patient has a previously recorded diagnosis of osteoarthritis: Yes Statin status: Already on a statin regimen Dx: E78.5 - Hyperlipidemia, unspecified Notes for E78.5: Hyperlipidemia No labs to review. Taking Atorvastatin. Educated on diet and encouraged to avoid foods high in saturated fats and added sugars. Encouraged to exercise and increase physical activity as tolerated. Educated on risk associated with elevated cholesterol. Continue to monitor labs (PCP). Instructed to follow up with PCP as scheduled.DISCUSSED: Educated patient on lifestyle modifications such as diet and exercise to improve lipid levelsDISCUSSED: Educated patient on importance of medication adherence to improve lipid levels In addition to hypertension, the patient has the following condition(s): None of These Dx: I10 - Essential (primary) hypertension Notes for I10: Pt. stated compliant with taking Amlodipine, Carvedilol, HCTZ as prescribed. Instructed on the benefits of eating a healthy diet and maintaining routine physical activity. Pt. will follow up with Provider as instructed.DISCUSSED: Educated patient on lifestyle modifications such as diet and exercise to improve blood pressureDISCUSSED: Educated patient on importance of medication adherence for blood pressure control Dx: M1. - Unspecified osteoarthritis, unspecified site Notes for : Member with Osteoarthritis + back pain Taking Tramadol, Flexeril as prescribed. Continue f/u with PCP Dx: G62.9 - Polyneuropathy, unspecified Additional Diagnosis Notes: Member with peripheral neuropathy Currently with s/s of numbness/weakness/paresthesia s to Bilat LE Currently complaint with prescribed therapy of: gabapentin Educated on the importance of regular inspection of lower legs/feet for rashes/wounds/discoloration ASSESSMENT SUMMARY Member medical history, medications, and most recent labs reviewed in [facility]. Discussed medication use and side effects with members prior to prescribing. Drug interactions reviewed: Yes APPOINTMENT CPT CODE* Please indicate how this visit was conducted: Video Please select the video platform used during the visit: [facility] Video Room Please record the total amount of time you spent on this patient visit- Total time includes time spent on preparation, speaking with the patient, documentation, and post-visit coordination of care - This is limited to time spent ON THE DATE OF SERVICE (e.g. does not include time spent on days prior to or after the date of service) 30 - 59 minutes [facility] 2023-09-28 21:53:58 Pt given printed and verbal discharge instructions regarding fall with shoulder contusion/hip contusion, encouraged RICE, Prescriptions provided Discussed mobic and to take with food to avoid GI distress, alternate with Tylenol to help with pain and/or fever Discussed steroid therapy and to take until all completed unless adverse reaction occurs - if occurs, discontinue medication and follow up with pcp/seek medical attention Pt verbalized understanding of instructions,pt encouraged to follow up with pcp Advised to seek medical attention for new/prolonged/worsening of symptoms, Awake, alert oriented, resp reg unlabored, skin w/d, pt leaving in no apparent distress, Rebecca Fishman RN [facility] 2023-09-28 19:46:35 Summary: Triage CC: patient states she took a fall last and hurt her right shoulder, right arm and right hip pain. Patient did not have LOC and the pain from the shoulder is traveling up to her neck, she was assisted up by family PMHx: see list PSH:see list MEDS:see list LMP: NA Tetanus: UTD Awake, alert, oriented, resp reg unlabored, skin warm, color appropriate for race, moves all ext without difficulty, amb with a cane. Appears in no distress Jenifer Henderson RN [facility] - Health 2023-09-28 19:41:00 [facility] Emergency Department Note Patient Name: Renuka Walls Date of : 1965 58 year old female Treatment Room: [place] [address] Primary Care Physician: Merrill Horton Patient Escorted by: Family [5] Mode of Arrival: Personal means [1] EMS Treatment Prior to ED Arrival: DIRECTOR OF COMPENSATION treatment: None Travel and Exposure Screening: Symptoms Does patient have any of these symptoms?: (not recorded) Exposure Screening Has patient had contact with someone with a communicable disease in the last month?: (not recorded) Diseases exposed to:: (not recorded) Is Patient ?: (not recorded) Exposure Date: (not recorded) Chief Complaint: Chief Complaint Patient presents with Fall Right shoulder Shoulder Pain History of Present Illness: 58 yo Morbidly Obese female who presents to the ED, staying that she tripped and fall yesterday, laying on her right shoulder and right hip, since then she has been having some localized pain and limited range of motion. 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 Past Surgical History: Past Surgical History: Procedure Laterality Date FULL MOUTH EXTRACTION WITH ALVEOLOPLASTY Bilateral 01/10/2017 Surgeon: Angelo Torres DMD; [facility] LAPAROSCOPIC BLADDER SUSPENSION N/A 12/24/2016 Surgeon: Toro Wing; Location: [facility] LAPAROSCOPIC LYSIS OF ADHESIONS (SHX) N/A 12/24/2016 Surgeon: Toro Wing; Location: [facility] LAPAROSCOPIC ROBOTIC ASSISTED SALPINGO-OOPHORECTOMY N/A 12/24/2016 Surgeon: Toro Wing; Location: [facility] LAPAROSCOPIC ROBOTIC ASSISTED VAGINAL HYSTERECTOMY N/A 12/24/2016 Surgeon: Toro Wing; Location: [facility] OR Location TUBAL LIGATION UTEROSACRAL VAGINAL VAULT SUSPENSION (SHX) N/A 12/24/2016 Surgeon: Toro Wing; Location: [facility] OR Location Review of Systems: Review of Systems Constitutional: Negative for activity change, appetite change, chills, diaphoresis, fatigue and fever. HENT: Negative for congestion, ear discharge, ear pain, rhinorrhea, sore throat and trouble swallowing. Eyes: Negative for photophobia, pain, discharge and redness. Respiratory: Negative for cough, chest tightness, shortness of breath and wheezing. Cardiovascular: Negative for chest pain, palpitations and leg swelling. Gastrointestinal: Negative for abdominal distention, abdominal pain, blood in stool, constipation, nausea and vomiting. Genitourinary: Negative for dysuria, urgency, polyuria, frequency, hematuria and flank pain. Musculoskeletal: Positive for arthralgias and gait problem. Negative for joint swelling, myalgias and neck stiffness. Skin: Negative for color change, rash and wound. Neurological: Negative for dizziness, seizures, syncope, facial asymmetry, weakness, light-headedness, numbness and headaches. Psychiatric/Behavioral: Negative for agitation, confusion, hallucinations and self-injury. The patient is not nervous/anxious. Hematological: Negative for adenopathy and cold intolerance. Does not bruise/bleed easily. Endocrine: Negative for cold intolerance, polydipsia and polyuria. Physical Exam: ED Triage Vitals [09/28/231947] Weight 128.8 kg (284 lb) Actual or estimated Actual Height 1.651 m (5' 5") BP (!) 146/87 Pulse 64 Resp 16 Temp 36.6 ?C (97.9 ?F) Temp source Oral SpO2 100 % Measured on Room air Physical Exam Vitals and nursing note reviewed. Constitutional: General: She is awake. She is not in acute distress. Appearance: She is well-developed and well-groomed. She is morbidly obese. She is not ill-appearing, toxic-appearing or diaphoretic. HENT: Head: Normocephalic and atraumatic. Right Ear: External ear normal. Left Ear: External ear normal. Nose: Nose normal. Mouth/Throat: Pharynx: No oropharyngeal exudate. Eyes: General: No scleral icterus. Right eye: No discharge. Left eye: No discharge. Conjunctiva/sclera: Conjunctivae normal. Pupils: Pupils are equal, round, and reactive to light. Neck: Thyroid: No thyromegaly. Vascular: No JVD. Trachea: No tracheal deviation. Cardiovascular: Rate and Rhythm: Normal rate and regular rhythm. Heart sounds: Normal heart sounds. No murmur heard. No friction rub. No gallop. Pulmonary: Effort: Pulmonary effort is normal. No respiratory distress. Breath sounds: Normal breath sounds. No stridor. No wheezing or rales. Chest: Chest wall: No tenderness. Abdominal: General: Bowel sounds are normal. There is no distension. Palpations: Abdomen is soft. There is no mass. Tenderness: There is no abdominal tenderness. There is no guarding or rebound. Musculoskeletal: General: No deformity. Right shoulder: Tenderness and bony tenderness present. No swelling, deformity, effusion or crepitus. Decreased range of motion. Left shoulder: Normal. Cervical back: Normal range of motion and neck supple. Right hip: Tenderness and bony tenderness present. No deformity, lacerations or crepitus. Decreased range of motion. Normal strength. Left hip: Normal. Lymphadenopathy: Cervical: No cervical adenopathy. Skin: General: Skin is warm and dry. Coloration: Skin is not pale. Findings: No erythema or rash. Neurological: Mental Status: She is alert and oriented to person, place, and time. Cranial Nerves: No cranial nerve deficit. Motor: No abnormal muscle tone. Coordination: Coordination normal. Deep Tendon Reflexes: Reflexes are normal and symmetric. Reflexes normal. Psychiatric: Behavior: Behavior normal. Behavior is cooperative. Thought Content: Thought content normal. Judgment: Judgment normal. Radiology: XR SHOULDER 2+ VW RIGHT Preliminary Result EXAM: XR HIPS 2 VW RIGHT, XR SHOULDER 2+ VW RIGHT HISTORY: fall, pain COMPARISON: None. FINDINGS: Radiographs of the [right hip] demonstrate no acute fracture or dislocation. The joint spaces are maintained. Metallic foreign body projects over the pelvis. No soft tissue abnormality is seen. Images of the right shoulder demonstrate no acute fracture or dislocation. Right acromioclavicular hypertrophy, joint space narrowing and subchondral sclerosis is present. IMPRESSION No acute osseous abnormality. Right acromioclavicular joint osteoarthrosis. Preliminary Report Dictated by Resident: Luci Pederson XR HIPS 2 VW RIGHT Preliminary Result EXAM: XR HIPS 2 VW RIGHT, XR SHOULDER 2+ VW RIGHT HISTORY: fall, pain COMPARISON: None. FINDINGS: Radiographs of the [right hip] demonstrate no acute fracture or dislocation. The joint spaces are maintained. Metallic foreign body projects over the pelvis. No soft tissue abnormality is seen. Images of the right shoulder demonstrate no acute fracture or dislocation. Right acromioclavicular hypertrophy, joint space narrowing and subchondral sclerosis is present. IMPRESSION No acute osseous abnormality. Right acromioclavicular joint osteoarthrosis. Preliminary Report Dictated by Resident: Luci Pederson Lab Results: Lab Results - No data to display EKG: If EKG completed, see Procedure Note. Orders and Treatments: Orders Placed This Encounter Procedures XR SHOULDER 2+ VW RIGHT XR HIPS 2 VW RIGHT Orders Placed This Encounter Medications acetaminophen (TYLENOL) tablet 975 mg meloxicam (MOBIC) tablet 15 mg meloxicam 15 mg tablet acetaminophen (TYLENOL ARTHRITIS PAIN) 650 mg CR tablet predniSONE 20 mg tablet First Provider Eval: ED Events Date/Time Event User Comments 09/28/231999 Medical Screening Begins OLIVIER ZAVALETA MD -- 09/28/231999 First Provider Evaluation OLIVIER ZAVALETA MD -- ED COURSE Patient's condition improved with the treatment provided in the ED, will Dc Home Diagnosis/Impression as of 09/28/232121 Fall, initial encounter Contusion of right shoulder, initial encounter Contusion of right hip, initial encounter Procedures: Procedures MDM: Medical Decision Making Problems Addressed: Contusion of right hip, initial encounter: self-limited or minor problem Contusion of right shoulder, initial encounter: self-limited or minor problem Fall, initial encounter: self-limited or minor problem Amount and/or Complexity of Data Reviewed Radiology: ordered and independent interpretation performed. Decision-making details documented in ED Course. Risk OTC drugs. Prescription drug management. Flowsheet Documentation: Scoring Tools: No data recorded Disposition/Condition: ED Disposition ED Disposition Disch - Home Condition Stable Comment -- Discharge Medications: Patient's Medications START taking these medications ACETAMINOPHEN (TYLENOL ARTHRITIS PAIN) 650 MG CR TABLET Take 1 tablet by mouth every 8 (eight) hours as needed for Pain. MELOXICAM 15 MG TABLET Take 1 tablet by mouth in the morning. PREDNISONE 20 MG TABLET Take 2 tablets PO daily CONTINUE taking these medications which have NOT CHANGED ASPIRIN 81 MG CHEWABLE TABLET Take 1 tablet by mouth daily. ATORVASTATIN 40 MG TABLET Take 1 tablet by mouth every evening. CALCIUM CARBONATE-VITAMIN D3 250-125 MG-UNIT PER TABLET Take 1 tablet by mouth 3 (three) times daily. CHLORHEXIDINE 0.12 % MOUTHWASH Swish and spit out 15 mL 2 (two) times daily. CLOPIDOGREL 75 MG TABLET Take 1 tablet by mouth daily.X 6 MOS.HG DOCUSATE 100 MG CAPSULE Take 1 capsule by mouth daily. NORTRIPTYLINE 50 MG CAPSULE Take 1 capsule by mouth at bedtime. OMEPRAZOLE 20 MG CAPSULE Take 1 capsule by mouth daily. PHENYLEPHRINE 0.25 % SUPPOSITORY Insert 1 Suppository into rectum 2 (two) times daily. WARFARIN 2.5 MG TABLET Take 1 tablet by mouth every Saturday, and Saturday in the evening. WARFARIN 2.5 MG TABLET Take 0.5 tablets by mouth every Sat, Sat, Sat and Sat in the evening. START taking Modified Medications as Prescribed No medications on file STOP taking these medications No medications on file Follow-up: Contact information for follow-up Grabiel Crockett Specialty: FM-FAMILY MEDICINE Relationship: PCP - General [address] [facility] [id number] Instructions: If symptoms worsen Electronically signed by: Olivier Zavaleta MD 09/28/232121 T [facility]
[2024-02-07] MEDS ORDERED: MORPHINE 4 MG/ML SYR ONE (16:32)
--- NOTE | 2024-02-07 17:16 | EDPHYS ---
Physician Documentation [facility] Name: Mechelle Walls Age: 58 yrs Sex: Female : 1965 Arrival Date: 02/07/2024 Time: 16:12 Bed 11 Private MD: ED Physician Sinan Roach HPI: 02/06 16:30 This 58 yrs old Female presents to ER via Ambulatory with complaints of Needs arm cp splint replaced. 16:30 Patient presents to ED with request to replace left arm splint. HX of recent left wrist cp fracture. Has appt with DR Campos for management, but splint loose. Historical: - Allergies: 16:19 TETRACYCLINES; aa5 - PMHx: 16:19 Hypertensive disorder; CVA; Pre Diabetes; aa5 16:20 "hole in heart"; aa5 - Immunization history:: Adult Immunizations unknown. - Infectious Disease History:: Denies. - Social history:: Smoking status: Patient denies any tobacco usage or history of. ROS: 16:35 Constitutional: HX per HPI cp Exam: 16:40 Constitutional: The patient appears in no acute distress, alert, awake, non-toxic, well cp developed, well nourished, 16:40 Head/Face: Normocephalic, atraumatic. cp 16:40 Chest/axilla: Inspection: normal, 16:40 Cardiovascular: Rate: normal, Rhythm: regular, Pulses: Pulses are 2+ in left radial artery. 16:40 Respiratory: the patient does not display signs of respiratory distress, Respirations: normal, no use of accessory muscles, no retractions, labored breathing, is not present, Breath sounds: are clear throughout, no decreased breath sounds, no stridor, no wheezing, 16:40 Abdomen/GI: Inspection: abdomen appears normal, 16:40 Musculoskeletal/extremity: Extremities: noted in the left arm: sugar tong type splint not in place, exam of wrist shows mild swelling, ecchymosis, extremity neurovascular intact, Vital Signs: 16:17 BP 155 / 86; Pulse 84; Resp 18 S; Temp 97.6(TE); Pulse Ox 95% on R/A; aa5 17:20 Pain 6/10; jl7 17:20 Pain Scale: Adult jl7 Procedures: 17:40 Splinting: Splint applied to left wrist using Orthoglass splint, sugar tong type. cp applied by nurse. Examined by me, post splint application: neurovascular intact, Patient tolerated well. MDM: 16:22 Patient medically screened. cp 17:00 Differential diagnosis: compartment syndrome. cp 17:15 Data reviewed: vital signs, nurses notes, and as a result, I will discharge patient. cp 17:15 I considered the following discharge prescriptions or medication management in the cp emergency department Medications were administered in the Emergency Department. See MAR. Counseling: I had a detailed discussion with the patient and/or guardian regarding the historical points, exam findings, and any diagnostic results supporting the discharge/admit diagnosis, to return to the emergency department if symptoms worsen or persist or if there are any questions or concerns that arise at home. 02/06 16:25 Order name: Splint - Sugar Tong - Forearm: leftforearm/wrist; Complete Time: 16:52 cp Administered Medications: 16:35 Drug: morphine IM 4 mg IM once Route: IM; Site: right deltoid; jl7 17:20 Follow up: Pain 6/10 Adult; Response: No adverse reaction; Pain is decreased jl7 Disposition: 02/07 15:56 Co-signature as Attending Physician, Sinan Roach MD I agree with the assessment and bharti plan of care. Disposition Summary: 02/07/24 17:16 Discharge Ordered Notes: Location: Home cp Problem: new cp Symptoms: have improved cp Condition: Stable cp Diagnosis - Encounter for other specified aftercare - replacement of splint cp Followup: cp - With: Sai Campos MD - When: 2 - 3 days - Reason: Recheck today's complaints Discharge Instructions: - Discharge Summary Sheet cp - Cast or Splint Care, Adult cp - Wrist Splint or Brace, Adult cp Forms: - Medication Reconciliation Form cp - Antibiotic Education cp - Prescription Opioid Use cp - Patient Portal Instructions cp - Leadership Thank You Letter cp Signatures: Sinan Roach MD MD cha Calderon, Audri, RN RN aa5 Sinan Linares PA PA cp Leal, Jahala RN RN jl7
--- NOTE | 2024-02-07 17:16 | ER ---
Nurse's Notes [facility] Name: Mechelle Walls Age: 58 yrs Sex: Female : 1965 Arrival Date: 02/07/2024 Time: 16:12 Bed 11 Private MD: Diagnosis: Encounter for other specified aftercare-replacement of splint Presentation: 02/06 16:17 Chief complaint: Patient states: has left wrist sx scheduled for Saturday with ortho, aa5 Dr. Campos but today the Orthoglass splint "slipped off" and wants it replaced. Coronavirus screen: At this time, the client does not indicate any symptoms associated with coronavirus-19. Ebola Screen: Patient denies travel to an Ebola-affected area in the 21 days before illness onset. Initial Sepsis Screen: Does the patient meet any 2 criteria? No. Patient's initial sepsis screen is negative. Does the patient have a suspected source of infection? No. Patient's initial sepsis screen is negative. Risk Assessment: Do you want to hurt yourself or someone else? Patient reports no desire to harm self or others. Onset of symptoms was February 07, 2024. 16:17 Acuity: ASH 4 aa5 16:17 Method Of Arrival: Ambulatory aa5 Historical: - Allergies: 16:19 TETRACYCLINES; aa5 - PMHx: 16:19 Hypertensive disorder; CVA; Pre Diabetes; aa5 16:20 "hole in heart"; aa5 - Immunization history:: Adult Immunizations unknown. - Infectious Disease History:: Denies. - Social history:: Smoking status: Patient denies any tobacco usage or history of. Screenin:25 [facility] ED Fall Risk Assessment (Adult) History of falling in the last 3 months, jl7 including since admission Yes- single mechanical fall (1 pt) Confusion or Disorientation No (0 pts) Intoxicated or Sedated No (0 pts) Impaired Gait No (0 pts) Mobility Assist Device Used Yes (1 pt) Altered Elimination No (0 pt) Score/Fall Risk Level 0 - 2 = Low Risk Oriented to surroundings, Maintained a safe environment. Abuse screen: Denies threats or abuse. Denies injuries from another. Nutritional screening: No deficits noted. Tuberculosis screening: No symptoms or risk factors identified. Assessment: 16:25 General: Appears in no apparent distress. uncomfortable, Behavior is calm, cooperative, jl7 appropriate for age. Pain: Complains of pain in left arm Pain currently is 8 out of 10 on a pain scale. Neuro: Level of Consciousness is awake, alert, obeys commands, Oriented to person, place, time, situation. Cardiovascular: Patient's skin is warm and dry. Respiratory: Airway is patent Respiratory effort is even, unlabored, Respiratory pattern is regular, symmetrical. Derm: Skin is pink, warm \\T\\ dry. Musculoskeletal: bruising noted to previously diagnosed wrist/forearm fracture. Original splint noted to be falling off. 17:10 Reassessment: Splint applied as ordered, ERP verified splint placement. jl7 Vital Signs: 16:17 BP 155 / 86; Pulse 84; Resp 18 S; Temp 97.6(TE); Pulse Ox 95% on R/A; aa5 17:20 Pain 6/10; jl7 17:20 Pain Scale: Adult jl7 ED Course: 16:15 Patient arrived in ED. mg5 16:15 Sinna Linares PA is PHCP. cp 16:15 Sinan Roach MD is Attending Physician. cp 16:17 Arm band placed on. aa5 16:19 Triage completed. aa5 16:22 Marcus Emanuel, RALPH is Primary Nurse. jl7 16:25 Patient has correct armband on for positive identification. Provided Education on: use jl7 off call vega. 16:55 Orthoglass splint: Sugar tong splint applied on left arm. jl7 17:09 No provider procedures requiring assistance completed. Patient did not have IV access jl7 during this emergency room visit. 17:15 Sai Campos MD is Referral Physician. cp Administered Medications: 16:35 Drug: morphine IM 4 mg IM once Route: IM; Site: right deltoid; jl7 17:20 Follow up: Pain 6/10 Adult; Response: No adverse reaction; Pain is decreased jl7 Medication: 16:25 VIS not applicable for this client. jl7 Outcome: 17:16 Discharge ordered by . cp 17:40 Discharged to home via wheelchair, with family, hb 17:40 Condition: stable 17:40 Discharge instructions given to patient, Instructed on discharge instructions, follow up and referral plans. Splint Care Demonstrated understanding of instructions, follow-up care, splint care, 17:40 Patient left the ED. hb Signatures: Elizabeth Kuhn, RN RN aa5 Sinan Linares PA PA cp Baxter, Heather, RALPH RN hb Marcus Emanuel RN RN jl7 Savita Grubbs 5
[2024-02-07 17:45] VITALS: BP 155/86; TEMP 97.6; O2SAT 95
== END 2024-02-07 17:40 | disposition home or self-care (01) ==
LOC: ER 16:12
PROC: 2W0DX1Z Change Splint on Left Lower Arm (ICD-10-PCS; principal; 2024-02-07)
DX: S62.102D Fracture of unspecified carpal bone, left wrist, subsequent encounter for fracture with routine healing (principal)
CPT/HCPCS: 96372; 99284

== ENCOUNTER 2024-02-12 09:12 | Day surgery (SDC) | payer MEDICARE ==
[2024-02-11 10:20] LABS: Absolute Eosinophils 0.1 K/uL (0-0.5); Absolute Lymphocytes (CBC) 1.1 K/uL (0.7-4.9); Absolute Monocytes 0.3 K/uL (0.1-1.3); Absolute Neutrophil 2.5 K/uL (1.8-8.0); Basophils % 0.9 % (0-1.3); Eosinophils % 3.3 % (0-4.4); Hematocrit 36.9 % (36.0-45.0); Hemoglobin 12.2 g/dL (12.0-15.0); Lymphocytes % 27.1 % (15.3-44.8); MCHC 33.1 g/dL (32.0-36.0); MCV 87.4 fL (80-100); MPV 9.2 fL (7.6-11.3); Monocytes % 7.5 % (3.3-12.3); Neutrophils % 61.2 % (41.7-73.7); Nucleated Red Blood Cells % 0.2 % (0-0); Platelets 270 thou/uL (152-406); RBC Red Blood Cell Count 4.22 M/uL (3.86-4.86); Red Cell Distribution Width 13.7 % (12.1-15.2)
[2024-02-11 10:35] LABS: Anion Gap 7.8 mEq/L (5.0-15.0); Potassium 3.8 mEq/L (3.5-5.1)
--- NOTE | 2024-02-11 10:49 | RAD REPORT ---
EXAMINATION: TWO VIEW CHEST XR CLINICAL INDICATION: Female, 58 years old. . [facility] MAIN PREADMIT SDS 5 TECHNIQUE: 2 views of the chest was performed. COMPARISON: No prior exam. FINDINGS: The lungs are well inflated and clear. The heart is normal in size. No displaced fractures evident. IMPRESSION: No acute or significant abnormalities.
[2024-02-11 12:41] LABS: PT Prothrombin Time 10.7 SECONDS (9.4-12.5); PTT, Activated Partial Thromb 36.2 SECONDS (24.3-36.9); Protime INR 0.95
--- NOTE | 2024-02-11 16:55 | EKG ---
Test Date: 2024-02-11 Test Time: 10:30:19 Measurement And Verification Engineer: REESE MEASUREMENT RESULTS: Intervals: Rate: 72 LA: 158 QRSD: 80 QT: 382 QTc: 418 [place]: P: -26 LA: 158 QRS: -8 T: 19 INTERPRETIVE STATEMENTS: Normal sinus rhythm Moderate voltage criteria for LVH, may be normal variant Borderline ECG Compared to ECG 11/22/2005 14:37:00 Left ventricular hypertrophy now present Electronically Signed On 02-11-24 16:54:29 CDT by Thaddeus Yousif
[2024-02-12] MEDS ORDERED: CEFAZOLIN SODIUM 2 GM/VIAL ONE (09:18)
[2024-02-12] MEDS ORDERED: Ringers Lactate 1,000 ML IV ONE (09:18)
[2024-02-12] MEDS ORDERED: BUPIVACAINE 0.5% PF 10 ML VIAL ONE ×3 (09:35→10:12)
[2024-02-12] MEDS ORDERED: FENTANYL CITR 100 MCG/2 ML ONE (09:57)
[2024-02-12] MEDS ORDERED: EPINEPHRINE 1 MG/ML VIAL ONE (09:57)
[2024-02-12] MEDS ORDERED: dexAMETHasone 4 MG/ML VIAL ONE ×2 (09:57→12:06)
[2024-02-12] MEDS ORDERED: MIDAZOLAM HCL 2 MG/2 ML INJ ONE (09:57)
[2024-02-12] MEDS ORDERED: ROCURONIUM 50 MG/5 ML VIAL IV ONE (10:33)
[2024-02-12] MEDS ORDERED: propofoL 200 MG/20 ML VIAL IV ONE (10:35)
[2024-02-12] MEDS ORDERED: LIDOCAINE 2% MPF 5 ML VIAL ONE (10:35)
[2024-02-12] MEDS ORDERED: ONDANSETRON 4 MG/2 ML VIAL ONE (12:06)
[2024-02-12] MEDS ORDERED: NEOSTIGMINE 1 MG/ML -10 ML VIAL ONE (12:16)
[2024-02-12] MEDS ORDERED: GLYCOPYRROLATE 0.2 MG/ML SYR ONE (12:16)
--- NOTE | 2024-02-12 12:52 | P.BOP ---
Preoperative diagnosis: left intraarticular distal radius fracture Postoperative diagnosis: same Primary procedure: open reduction internal fixation left 4 part distal radius fracture Theoretical Physics Teacher: NONE,NONE Estimated blood loss: 10 cc Specimen: none Findings: see dictation Anesthesia: General Complications: None Implants: Acumed 3 hole distal radius locking plate Fluids & blood products: per anesthesia record; TT: 68 mins @ 300 mmHg Transferred to: Recovery Room Condition: Good
[2024-02-12 13:20] VITALS: O2SAT 95
[2024-02-12] MEDS: HYDROCODONE/APAP 7.5/325 MG TAB ONE (13:26)
[2024-02-12 14:12] VITALS: BP 133/61; TEMP 97.2
--- NOTE | 2024-02-12 15:57 | RAD REPORT ---
EXAM: Fluoroscopy use, Wrist Left 2 View HISTORY: [facility] MAIN ORIF LT WRIST COMPARISON: None FINDINGS: A total of 10 images were sent to PACS, during a fluoroscopically guided wrist open reducti on and internal fixation. No radiologist was involved in protocoling or performance of the study, and no radiologist was present for the duration of the procedure. No interpretation of the saved imag es will be provided. Total fluoroscopy time: 0.3 minutes. IMPRESSION: Documentation of fluoroscopy use as above.
--- NOTE | 2024-02-12 17:42 | RAD REPORT ---
Wrist Left 2 View History: Wrist fracture Findings: Sideplate and screws affixing fracture Avulsion fracture ulnar styloid process
--- NOTE | 2024-02-14 10:53 | OP ---
Date of Procedure: 02/12/2024 Surgeon: Sai Campos MD Preoperative Diagnosis: Left intra-articular distal radius fracture. Postoperative Diagnosis: Left intra-articular distal radius fracture. Procedure Performed: Open reduction and internal fixation of left 4-part distal radius fracture. Anesthesia: General LMA. Fluids: Per Anesthesia record. Estimated Blood Loss: 10 cc. Complications: None. Implants: An Acumed 3-hole distal radius locking plate. Tourniquet Time: 68 minutes at 300 mmHg. Indication For Procedure: Mechelle is a 58-year-old female who presented to my clinic with signs, symp toms, and x-ray findings consistent with a comminuted left intra-articular distal radius fracture. I discussed with the patient and the family at length risks and benefits associated with operative and nonoperative treatment measures given her significantly comminuted as well as unstable fracture irene gordon and recommended operative treatment. Given the significant comminution as well as unstable fract ure pattern, I discussed with the patient the likely chance of posttraumatic osteoarthritis of the __ . She expressed understanding. Description Of Procedure: After informed consent was obtained, the patient was identified in the pre operative holding area. The left upper extremity was marked. The patient was then brought back to [facility] PACU, where she underwent a left-sided interscalene block, preoperative nerve block to aid with pa in control postoperatively, which was performed by Anesthesia team. The patient was then brought the [facility] to the operating room and transferred to the operative table in supine fashion, placed under genera l LMA anesthesia. The left upper extremity was then prepped and draped in the usual sterile fashion. A time-out was initiated. The correct patient and procedure were confirmed and identified. The pa tient did receive preoperative prophylactic antibiotics. The left upper extremity was then exsanguin ated using an Esmarch, and tourniquet was inflated at 300 mmHg. A fluoroscopy was then used to evalu ate the fracture there. Gentle traction was placed to help reduce the fracture. There was significa nt comminution with over 4-part fracture noted. A standard volar Grant approach was taken over the F CR tendon sheath. The FCR tendon was then encountered and retracted radially. The floor of the tend on sheath was then opened using a 15 blade and released in line on the incision with the Metzenbaum's . Blunt dissection was then taken down to the pronator quadratus, which was elevated off the distal radius. The fracture was identified. There was significant comminution. Multiple fracture fragment s had to be released to help obtain reduction of the fracture. Lobster claw was then used to help ma nipulate the fracture and once adequate reduction was obtained, a guide pin was placed under the tip of the radial styloid down to the mid radial shaft to help hold temporary fixation. A 3-hole distal radius Acumed locking plate was then placed over the fracture. The guide pins were then placed dista l to ensure that the plate was extra-articular, which was discussed and confirmed in both AP and late ral views. Once proper positioning of the plate and the fracture reduction was confirmed using fluor oscopy in AP and lateral views, a single screw was placed in the oblong hole in the proximal portion of the plate within the shaft using a 3.5 cortical screw in bicortical fashion. A single cortical sc rew was placed distally to help with reduction of the fracture and as the fracture was reduced volarl y to the plate, 5 locking screws were placed in a unicortical fashion distally to hold the fracture r educed. Fluoroscopy was then used to confirm adequate reduction. The initial cortical screw within the distal segment was then replaced with a unicortical locking screw. Two remaining 3.5 cortical sc rews were placed within the shaft in a bicortical fashion. K-wire was removed. Fluoroscopy was then used to confirm reduction and proper placement of the plate and this was confirmed in both AP and la teral views. The wound was then irrigated thoroughly with normal saline. Subcutaneous tissue was ap proximated using a 2-0 Vicryl. Skin was approximated using a 4-0 Monocryl. Sterile dressings were a pplied. The patient was placed in a sugar-tong splint, awakened, and transferred to PACU in stable c ondition. Postoperative Plan: The patient will be nonweightbearing of her left upper extremity. She will foll ow up in 2 weeks for wound check. I will likely place her in a short-arm cast at that time given her significantly unstable fracture pattern. CV/MODL Voice ID: [id number] Report ID: [id number]
== END 2024-02-12 14:20 | disposition home or self-care (01) ==
LOC: OR 09:12
PROVIDERS: ATTEND Orthopaedic Surgery Sports Medicine
PROC: 0PSJ04Z Reposition Left Radius with Internal Fixation Device, Open Approach (ICD-10-PCS; principal; 2024-02-12 11:00)
DX: S52.572A Other intraarticular fracture of lower end of left radius, initial encounter for closed fracture (principal); I10 Essential (primary) hypertension; E78.5 Hyperlipidemia, unspecified
CPT/HCPCS: 36415; 71046; 80048; 85025; 85610; 85730; 93005; C1713; J0171; J1100; J2001; J2250; J2405; J2704; J2710; J3010; J7120